=== PATIENT | male | born 1960 | race Caucasian/White ===

== ENCOUNTER 2017-11-05 12:35 | Emergency (ER) | payer MEDICARE, MEDICAID ==
[2017-11-05] MEDS ORDERED: Albuterol 0.083% 2.5 MG/3 ML Neb Soln NEB ONE (12:51)
--- NOTE | 2017-11-05 12:52 | EDM.PDOC ---
ED HPI GENERAL MEDICAL PROBLEM - General Chief Complaint: Respiratory Problem Stated Complaint: ASPIRATING/CHOKING ON SOMETHING Time Seen by Provider: 11/05/17 12:40 Source of Information: Reports: Old Records, Other (housekeeper caregiver) History Limitations: Reports: Other (patient has Down's syndrome and is non- verbal) - History of Present Illness INITIAL COMMENTS - FREE TEXT/NARRATIVE: 57 yo male aspirated after lunch today. Someone in his presence did a Heimich maneuver. Is still having some trouble breathing with a wet cough. No one seems to think he has ever had a swallowing evaluation done. Was taken to the ER at least once in the past for aspiration after eating. Onset: Today Onset Date: 11/05/17 Onset Time: 12:20 Duration: Minutes:, Constant Location: Reports: Chest Severity: Moderate Improves with: Reports: None Worsens with: Reports: None Context: Reports: Other (choking after lunch) Associated Symptoms: Reports: Cough, Shortness of Breath Treatments MORTAR MIXER: Reports: Other (see below) (Serafin zepeda) - Related Data Allergies Allergy/AdvReac Type Severity Reaction Status Date / Time Penicillins Allergy Other Verified 11/05/17 13:15 Home Meds: Home Meds Ascorbate Calcium/Bioflavonoid [Randee-C 500 MG] 1 each PO BID 04/16/17 [History] Garlic Extract [Garlipure] 1,200 mg PO BID 04/16/17 [History] Gluc HCl/Csa/Elliott Hy/Hyalur Ac [Glucosamine Chondroitin] 1 each PO BID 04/16/17 [History] Ibuprofen [Advil] 200 mg PO DAILY 04/16/17 [History] Magnesium 200 mg PO BID 04/16/17 [History] Multivit &Minerals/Ferrous Fum [Multivitamin Liquid] 1 tbsp PO BID 04/16/17 [ History] Triamcinolone Acetonide [Triamcinolone Acetonide Lotion] 1 applic TOP BID [History] Fluocinolone Acetonide Oil [Dermotic] 4 drp EARBOTH .2XWEEK 08/13/17 [History] Polyvinyl Alcohol/Povidone/Pf [Refresh Classic Eye Drops] 1 each EYEBOTH QID 03/22 [History] Tumeric 1 cap PO BID 08/13/17 [History] ED ROS GENERAL - Review of Systems Review Of Systems: See Below Constitutional: Reports: No Symptoms HEENT: Reports: No Symptoms Respiratory: Reports: Shortness of Breath, Cough (wet). Denies: Wheezing, Sputum, Hemoptysis Cardiovascular: Reports: No Symptoms GI/Abdominal: Reports: No Symptoms : Reports: No Symptoms Musculoskeletal: Reports: No Symptoms Skin: Reports: No Symptoms Neurological: Reports: No Symptoms ED EXAM, GENERAL - Physical Exam Exam: See Below Exam Limited By: No Limitations General Appearance: Alert, WD/WN, Mild Distress Eye Exam: Bilateral Eye: Normal Inspection Ears: Normal External Exam, Normal Canal Ear Exam: Bilateral Ear: Auricle Normal, Canal Normal Nose: Normal Inspection, Normal Mucosa, No Blood Throat/Mouth: Normal Inspection, Normal Lips, Normal Oropharynx, No Airway Compromise Head: Atraumatic, Normocephalic Neck: Normal Inspection Respiratory/Chest: No Accessory Muscle Use, Chest Non-Tender, Rhonchi, Other ( wet breath sounds, wet cough) Cardiovascular: Regular Rate, Rhythm, No Edema GI/Abdominal: Normal Bowel Sounds, Soft, Non-Tender, No Distention Extremities: Normal Inspection, Normal Range of Motion, Non-Tender, No Pedal Edema Neurological: Alert, CN II-XII Intact, No Motor/Sensory Deficits Psychiatric: Normal Affect, Normal Mood Skin Exam: Warm, Dry, Intact, Normal Color, No Rash Course - Vital Signs Text/Narrative:: Oxygen per nasal cannula initiated for oximeter of 88%, sats after suction 90-91 %, with ambulation 90% ST suctioned oropharynx Albuterol neb given with slight benefit. Last Recorded V/S: Last Vital Signs Temp 36.2 C 11/05/17 13:14 Pulse 104 H 11/05/17 13:14 Resp 17 11/05/17 13:14 BP 165/84 H 11/05/17 13:14 Pulse Ox 87 L 11/05/17 13:14 - Orders/Labs/Meds Orders: Active Orders 24 hr Category Date Time Status Oxygen Therapy Adult [Oxygen Therapy, ED] [] Care 11/05/17 12:41 Active ASDIRECTED RT Aerosol Therapy [RC] ASDIRECTED Care 11/05/17 12:52 Active RT Suction Oropharyngeal [RESPCARE] Stat Oth 11/05/17 12:42 Ordered Meds: Medications Discontinued Medications Generic Name Dose Route Start Last Admin Trade Name Freq PRN Reason Stop Dose Admin Albuterol 2.5 mg 11/05/17 12:51 11/05/17 13:00 Proventil Neb Soln NEB 11/05/17 12:52 2.5 mg ONETIME ONE Administration Departure - Departure Time of Disposition: 13:49 Disposition: Home, Self-Care 01 Condition: Fair Clinical Impression: Aspiration of food Qualifiers: Encounter type: initial encounter Qualified Code(s): T17.890A - Other foreign object in other parts of respiratory tract causing asphyxiation, initial encounter - Discharge Information Referrals: Kirill Sanford MD [Primary Care Provider] - Forms: ED Department Discharge - My Orders Last 24 Hours: My Active Orders 11/05/17 12:41 Oxygen Therapy Adult [Oxygen Therapy, ED] [RC] ASDIRECTED 11/05/17 12:42 RT Suction Oropharyngeal [RESPCARE] Stat 11/05/17 12:52 RT Aerosol Therapy [RC] ASDIRECTED - Assessment/Plan Last 24 Hours: My Active Orders 11/05/17 12:41 Oxygen Therapy Adult [Oxygen Therapy, ED] [RC] ASDIRECTED 11/05/17 12:42 RT Suction Oropharyngeal [RESPCARE] Stat 11/05/17 12:52 RT Aerosol Therapy [RC] ASDIRECTED
== END 2017-11-05 14:13 | disposition home or self-care (01) ==
LOC: JP.ED 12:35
DX: T17.890A Other foreign object in other parts of respiratory tract causing asphyxiation, initial encounter (principal); Z79.899 Other long term (current) drug therapy; Z88.0 Allergy status to penicillin
CPT/HCPCS: 94640; 99284-25

== ENCOUNTER 2019-05-07 13:18 | Emergency (ER) | payer MEDICARE, MEDICAID ==
--- NOTE | 2019-05-07 14:10 | EDM.PDOC ---
ED HPI GENERAL MEDICAL PROBLEM - General Chief Complaint: Syncope Stated Complaint: WAS SEEN AT CLINIC ON WEDNESDAY FAINTED THIS AM Time Seen by Provider: 05/07/19 14:03 Source of Information: Reports: Family, RN Notes Reviewed History Limitations: Reports: Physical Impairment - History of Present Illness INITIAL COMMENTS - FREE TEXT/NARRATIVE: 59-year-old gentleman presents emergency department today complaint of syncopal event, she is developmentally disabled currently residing in a assisted living home had a syncopal event this morning it was unwitnessed however was found by caregivers easily aroused pulse was 101 heart rate was monitored for the next several hours did return to normal range, no complaints at this time - Related Data Allergies Allergy/AdvReac Type Severity Reaction Status Date / Time Penicillins Allergy Other Verified 05/07/19 13:44 Home Meds: Home Meds Garlic Extract [Garlipure] 600 mg PO BID 04/16/17 [History] Gluc HCl/Csa/Elliott Hy/Hyalur Ac [Glucosamine Chondroitin] 1 each PO BID 04/16/17 [History] Ibuprofen [Advil] 200 mg PO DAILY 04/16/17 [History] Magnesium 2 tab PO DAILY 04/16/17 [History] Multivit &Minerals/Ferrous Fum [Multivitamin Liquid] 1 tab PO BID 04/16/17 [ History] Triamcinolone Acetonide [Triamcinolone Acetonide Lotion] 1 applic TOP BID [History] Polyvinyl Alcohol/Povidone/Pf [Refresh Classic Eye Drops] 1 each EYEBOTH DAILY 08/13/17 [History] Ciclopirox [Loprox 0.77% Crm] 1 dose TOP ASDIRECTED 11/11/17 [History] Nystatin [Nystatin Crm] 1 dose TOP DAILY 11/11/17 [History] Ascorbate Calcium/Bioflavonoid [Randee-C 500 MG] 500 mg PO BID 08/19/18 [History] Mometasone Furoate [Elocon 0.1% Crm] 1 applic TOP WEEKLY 08/19/18 [History] Tumeric 1,500 mg PO DAILY 11/29/18 [History] Fluocinolone Acetonide Oil [Flac Otic Oil] 4 drop EARBOTH .2XWEEK 11/30/18 [ History] Pumpkin Seed Oil/Saw [place] [Saw [place] 160 mg Softgel] 160 mg PO DAILY [History] Azithromycin 1 tab PO DAILY 05/07/19 [History] Past Medical History Psychiatric History: Reports: Developmental Delay - Past Surgical History Head Surgeries/Procedures: Reports: None Social & Family History - Tobacco Use Smoking Status *Q: Never Smoker - Caffeine Use Caffeine Use: Reports: Soda ED ROS GENERAL - Review of Systems Review Of Systems: See Below Constitutional: Reports: No Symptoms HEENT: Reports: No Symptoms Respiratory: Reports: No Symptoms Cardiovascular: Reports: Syncope GI/Abdominal: Reports: No Symptoms - Physical Exam Exam: See Below Exam Limited By: Physical Impairment General Appearance: Alert, WD/WN, No Apparent Distress Respiratory/Chest: No Respiratory Distress, Lungs Clear, Normal Breath Sounds, No Accessory Muscle Use, Chest Non-Tender Cardiovascular: Regular Rate, Rhythm, No Murmur Course - Vital Signs Last Recorded V/S: Last Vital Signs Temp 98.0 F 05/07/19 13:51 Pulse 96 05/07/19 13:51 Resp 14 05/07/19 13:51 BP 122/73 05/07/19 13:51 Pulse Ox 94 L 05/07/19 13:51 - Orders/Labs/Meds Orders: Active Orders 24 hr Category Date Time Status EKG Documentation Completion [RC] ASDIRECTED Care 05/07/19 14:07 Active EKG 12 Lead [EK] Stat Ther 05/07/19 14:07 Ordered Departure - Departure Time of Disposition: 14:41 Disposition: Home, Self-Care 01 Condition: Fair Clinical Impression: Syncope Qualifiers: Syncope type: unspecified Qualified Code(s): R55 - Syncope and collapse - Discharge Information Referrals: Kirill Sanford MD [Primary Care Provider] - Forms: ED Department Discharge Additional Instructions: Please return to the emergency department with continued symptoms of passing out , another option is to consider evaluation long-term either event monitor or Holter monitor follow-up with your primary care in the next 3-5 days with concerns - My Orders Last 24 Hours: My Active Orders 05/07/19 14:07 EKG Documentation Completion [RC] ASDIRECTED EKG 12 Lead [EK] Stat - Assessment/Plan Last 24 Hours: My Active Orders 05/07/19 14:07 EKG Documentation Completion [RC] ASDIRECTED EKG 12 Lead [EK] Stat Plan: Assessment Acuity = acute Site and laterality = syncope unwitnessed Etiology = unknown Manifestations = none Location of injury = Home Lab values = EKG demonstrates a sinus rhythm there is no ST elevations or depressions no signs of ischemia Plan Did review EKG results with caregiver discussed the possibility of event monitor or Holter monitor have him follow-up with primary care in the next 3-5 days for reevaluation or return to the emergency department with continued symptoms This note was dictated using [employer] voice recognition software please call with any questions on syntax or grammar.
== END 2019-05-07 14:56 | disposition home or self-care (01) ==
LOC: JP.ED 13:18
DX: R55 Syncope and collapse (principal); Z88.1 Allergy status to other antibiotic agents
CPT/HCPCS: 93005; 99283-25

== ENCOUNTER 2019-09-05 13:52 | Emergency (ER) | payer MEDICARE, MEDICAID ==
--- NOTE | 2019-09-05 14:26 | EDM.PDOC ---
ED HPI GENERAL MEDICAL PROBLEM - General Chief Complaint: Respiratory Problem Stated Complaint: COUGHING Time Seen by Provider: 09/05/19 14:24 Source of Information: Reports: Patient, Other (hardwood finisher) History Limitations: Reports: Other (down's Syndrome) - History of Present Illness Onset: Gradual Onset Date: 09/03/19 Duration: Getting Worse - Related Data Allergies Allergy/AdvReac Type Severity Reaction Status Date / Time Penicillins Allergy Other Verified 09/05/19 14:34 Home Meds: Home Meds Garlic Extract [Garlipure] 700 mg PO BID 04/16/17 [History] Glucosam/Chond/Collagen/Hyalur [Glucosamine Chondroitin] 1 each PO BID 04/16/17 [History] Ibuprofen [Advil] 200 mg PO DAILY 04/16/17 [History] Multivit-Min/Ferrous Fumarate [Multivitamin Liquid] 1 tab PO BID 04/16/17 [ History] Triamcinolone Acetonide [Triamcinolone Acetonide Lotion] 1 applic TOP BID [History] Polyvinyl Alcohol/Povidone/Pf [Refresh Classic Eye Drops] 1 each EYEBOTH QID 03/22 [History] Ciclopirox [Loprox 0.77% Crm] 1 dose TOP ASDIRECTED 11/11/17 [History] Nystatin [Nystatin Crm] 1 dose TOP DAILY 11/11/17 [History] Ascorbate Calcium/Bioflavonoid [Randee-C 500 MG] 500 mg PO BID 08/19/18 [History] Tumeric 1,500 mg PO DAILY 11/29/18 [History] Pumpkin Seed Oil/Saw [place]rill [Saw [place]rill 160 mg Softgel] 160 mg PO BID [History] Fluorometholone [Fluorometholone 0.1% Ophth Susp] 4 drop EARBOTH ASDIRECTED 09/21 [History] Magnesium Oxide [Uromag] 2 cap PO BID 09/05/19 [History] Triamcinolone Acetonide 1 dose TOP BID 09/05/19 [History] Past Medical History HEENT History: Reports: None Cardiovascular History: Reports: None Respiratory History: Reports: None, Pneumonia, Recurrent Gastrointestinal History: Reports: None Genitourinary History: Reports: None Musculoskeletal History: Reports: None Neurological History: Reports: None Psychiatric History: Reports: Developmental Delay Endocrine/Metabolic History: Reports: None Hematologic History: Reports: None Immunologic History: Reports: None Oncologic (Cancer) History: Reports: None Dermatologic History: Reports: None - Past Surgical History Head Surgeries/Procedures: Reports: None Social & Family History - Caffeine Use Caffeine Use: Reports: Soda ED ROS GENERAL - Review of Systems Review Of Systems: See Below Constitutional: Reports: Weakness, Fatigue HEENT: Denies: Ear Pain, Rhinitis Respiratory: Reports: Shortness of Breath Cardiovascular: Denies: Chest Pain Endocrine: Reports: Fatigue GI/Abdominal: Denies: Abdominal Pain, Vomiting Skin: Reports: Dryness. Denies: Pallor, Rash ED EXAM, GENERAL - Physical Exam Exam: See Below Exam Limited By: Other (Down's Syndrome. Minimal interaction) General Appearance: Alert, Other (Down's Syndrome, Minimal interaction.) Eye Exam: Bilateral Eye: Normal Inspection, PERRL Ears: Normal External Exam Nose: Normal Inspection, Normal Mucosa Throat/Mouth: Other (dried mucous membranes,) Neck: Normal Inspection Respiratory/Chest: Respiratory Distress (Tachypnea. I count resp rate 30.), Decreased Breath Sounds, Crackles (RLL) Cardiovascular: Normal Peripheral Pulses, Regular Rate, Rhythm GI/Abdominal: Soft, Non-Tender Back Exam: Full Range of Motion Extremities: Normal Inspection. No: Pedal Edema Neurological: Alert, Other (non verbal) Psychiatric: Flat Affect Skin Exam: Warm, Dry, Other (Facial flushing) Course - Vital Signs Last Recorded V/S: Last Vital Signs Temp 36.5 C 09/05/19 16:02 Pulse 96 09/05/19 16:02 Resp 16 09/05/19 16:02 BP 127/78 09/05/19 16:02 Pulse Ox 91 L 09/05/19 16:02 - Orders/Labs/Meds Orders: Active Orders 24 hr Category Date Time Status RT Aerosol Therapy [RC] ASDIRECTED Care 09/05/19 15:29 Active UA W/MICROSCOPIC [URIN] Urgent Lab 09/05/19 15:19 Ordered Sodium Chloride 0.9% [Normal Saline] 1,000 ml Med 09/05/19 15:30 Active IV ASDIRECTED Medication Orders Sodium Chloride (Normal Saline) 1,000 mls @ 500 mls/hr IV ASDIRECTED ELHAM Last Admin: 03/03/20 15:58 Dose: 500 mls/hr Labs: Laboratory Tests 09/05/19 09/05/19 09/05/19 Range/Units 15:23 15:23 15:23 WBC 5.6 (4.5-11.0) K/uL RBC 3.44 L (4.30-5.90) M/uL Hgb 11.9 L (12.0-15.0) g/dL Hct 37.3 L (40.0-54.0) % MCV 108 H (80-98) fL MCH 35 H (27-31) pg MCHC 32 (32-36) % Plt Count 231 (150-400) K/uL Sodium 137 L (140-148) mmol/L Potassium 3.8 (3.6-5.2) mmol/L Chloride 98 L (100-108) mmol/L Carbon Dioxide 31 (21-32) mmol/L Anion Gap 11.8 (5.0-14.0) mmol/L BUN 18 (7-18) mg/dL Creatinine 0.7 L (0.8-1.3) mg/dL Est Cr Clr Drug Dosing 79.37 mL/min Estimated GFR (MDRD) > 60 (>60) Glucose 100 (74-106) mg/dL Lactic Acid 1.0 (0.4-2.0) mmol/L Calcium 8.3 L (8.5-10.1) mg/dL Total Bilirubin 0.3 (0.2-1.0) mg/dL AST 37 (15-37) U/L ALT 42 (12-78) U/L Alkaline Phosphatase 80 (46-116) U/L Total Protein 6.5 (6.4-8.2) g/dL Albumin 2.2 L (3.4-5.0) g/dL Globulin 4.3 H (2.3-3.5) g/dL Albumin/Globulin Ratio 0.5 L (1.2-2.2) Meds: Medications Generic Name Dose Route Start Last Admin Trade Name Freq PRN Reason Stop Dose Admin Sodium Chloride 1,000 mls @ 500 mls/hr 09/05/19 15:30 09/05/19 15:58 Normal Saline IV 500 mls/hr ASDIRECTED ELHAM Administration Discontinued Medications Generic Name Dose Route Start Last Admin Trade Name Freq PRN Reason Stop Dose Admin Albuterol/Ipratropium 3 ml 09/05/19 15:29 09/05/19 15:53 Duoneb 3.0-0.5 Mg/3 Ml NEB 09/05/19 15:30 3 ml ONETIME ONE Administration Departure - Departure Time of Disposition: 16:45 Disposition: Home, W Home Health Agency 06 Condition: Good Clinical Impression: Upper respiratory infection - Discharge Information Instructions: Viral Respiratory Infection Referrals: Kirill Sanford MD [Primary Care Provider] - Forms: ED Department Discharge Sepsis Event Note - Focused Exam Vital Signs: Vital Signs Temp Pulse Resp BP Pulse Ox 09/05/19 16:02 36.5 C 96 16 127/78 91 L 09/05/19 14:32 102 H 17 133/71 90 L 09/05/19 14:08 102 H 17 133/71 90 L Date Exam was Performed: 09/05/19 Time Exam was Performed: 16:46 - My Orders Last 24 Hours: My Active Orders 09/05/19 15:19 UA W/MICROSCOPIC [URIN] Urgent 09/05/19 15:29 RT Aerosol Therapy [RC] ASDIRECTED 09/05/19 15:30 Sodium Chloride 0.9% [Normal Saline] 1,000 ml IV ASDIRECTED - Assessment/Plan Last 24 Hours: My Active Orders 09/05/19 15:19 UA W/MICROSCOPIC [URIN] Urgent 09/05/19 15:29 RT Aerosol Therapy [RC] ASDIRECTED 09/05/19 15:30 Sodium Chloride 0.9% [Normal Saline] 1,000 ml IV ASDIRECTED
[2019-09-05] MEDS: Albuterol/Ipratropium 3.0-0.5 MG/3 ML Neb Soln NEB ONE (15:53)
[2019-09-05] MEDS: Sodium Chloride 0.9% 1,000 ML IV SCH (15:58)
--- NOTE | 2019-09-05 16:06 | CRLCR ---
INDICATION: COUGH, TACHYPNEA TECHNIQUE: Chest 2 views. COMPARISON: None. FINDINGS: Cardiovascular and mediastinum: Heart size and vasculature are normal in caliber and appearance. Mediastinum is within normal limits. Lungs and pleural spaces: Lungs are clear. No sign of infiltrate or mass. No sign of pleural effusion. No pneumothorax. Bones and soft tissues: No significant findings. IMPRESSION: Unremarkable chest. Dictated by: Kirill Hitchcock MD @ 09/05/2019 16:04:24 (Electronically Signed)
== END 2019-09-05 18:38 | disposition home health service (06) ==
LOC: JP.ED 13:52
DX: J06.9 Acute upper respiratory infection, unspecified (principal); Z88.0 Allergy status to penicillin; Z79.899 Other long term (current) drug therapy
CPT/HCPCS: 36415; 71046; 80053; 83605; 85027; 94640; 96360; 96361; 99284; 99285; J7030; J7620-GY

== ENCOUNTER 2019-09-07 19:56 | Inpatient (IN) | payer MEDICARE, MEDICAID ==
[2019-09-07] MEDS ORDERED: Sodium Chloride 0.9% 1,000 ML IV SCH ×2 (21:00→21:30)
[2019-09-07] MEDS ORDERED: Albuterol 0.083% 2.5 MG/3 ML Neb Soln NEB ONE (21:14)
--- NOTE | 2019-09-07 21:14 | CRLCR ---
INDICATION: Shortness of breath and low O2 saturations Technique: Portable upright chest. COMPARISON: 09/05/2019. FINDINGS: Developing bilateral bibasilar pulmonary infiltrates suggesting pneumonia. Normal heart size and pulmonary vascular pattern. Possible small left pleural effusion. IMPRESSION: 1. Developing bibasilar pulmonary opacities with pneumonia the primary consideration. 2. Possible small left pleural effusion. Dictated by Khalif Ellis MD @ Sep 07 2019 9:12PM Signed by Dr. Khalif Ellis @ Sep 07 2019 9:13PM
--- NOTE | 2019-09-07 21:17 | EDM.PDOC ---
ED HPI GENERAL MEDICAL PROBLEM - General Chief Complaint: General Stated Complaint: WEAKNESS,NOT EATING Time Seen by Provider: 09/07/19 21:13 Source of Information: Reports: Patient History Limitations: Reports: No Limitations - History of Present Illness INITIAL COMMENTS - FREE TEXT/NARRATIVE: pt arrived being much weaker and more congested in his chest. He is not drinking or eating well at the care home. He has had low grade temps. His o2 sats are at 90. . Onset: Other (pt has been sick for about 2 weeks. ) Duration: Day(s): Location: Reports: Chest, Other (pt is not eating or drinking well. ) Associated Symptoms: Reports: Cough, Loss of Appetite, Shortness of Breath, Weakness - Related Data Allergies Allergy/AdvReac Type Severity Reaction Status Date / Time cephalexin [From Keflex] Allergy Other Verified 09/07/19 21:08 Penicillins Allergy Other Verified 09/07/19 20:43 Home Meds: Home Meds Garlic Extract [Garlipure] 700 mg PO BID 04/16/17 [History] Glucosam/Chond/Collagen/Hyalur [Glucosamine Chondroitin] 1 each PO BID 04/16/17 [History] Ibuprofen [Advil] 200 mg PO DAILY 04/16/17 [History] Multivit-Min/Ferrous Fumarate [Multivitamin Liquid] 1 tab PO BID 04/16/17 [ History] Triamcinolone Acetonide [Triamcinolone Acetonide Lotion] 1 applic TOP BID [History] Polyvinyl Alcohol/Povidone/Pf [Refresh Classic Eye Drops] 1 each EYEBOTH QID 03/22 [History] Ciclopirox [Loprox 0.77% Crm] 1 dose TOP ASDIRECTED 11/11/17 [History] Nystatin [Nystatin Crm] 1 dose TOP DAILY 11/11/17 [History] Ascorbate Calcium/Bioflavonoid [Randee-C 500 MG] 500 mg PO BID 08/19/18 [History] Tumeric 1,500 mg PO DAILY 11/29/18 [History] Pumpkin Seed Oil/Saw [place] [Saw [place] 160 mg Softgel] 160 mg PO BID [History] Fluorometholone [Fluorometholone 0.1% Ophth Susp] 4 drop EARBOTH ASDIRECTED 09/21 [History] Magnesium Oxide [Uromag] 2 cap PO BID 09/05/19 [History] Triamcinolone Acetonide 1 dose TOP BID 09/05/19 [History] Past Medical History HEENT History: Reports: None Cardiovascular History: Reports: None Respiratory History: Reports: None, Pneumonia, Recurrent Gastrointestinal History: Reports: None Genitourinary History: Reports: None Musculoskeletal History: Reports: None Other Musculoskeletal History: perthes hip defect. possible torn muscle in thigh. Neurological History: Reports: None Psychiatric History: Reports: Developmental Delay Other Psychiatric History: down syndrome Endocrine/Metabolic History: Reports: None Hematologic History: Reports: None Immunologic History: Reports: None Oncologic (Cancer) History: Reports: None Dermatologic History: Reports: None - Past Surgical History Head Surgeries/Procedures: Reports: None Social & Family History - Family History Family Medical History: Noncontributory - Tobacco Use Smoking Status *Q: Never Smoker - Caffeine Use Caffeine Use: Reports: None - Recreational Drug Use Recreational Drug Use: No ED ROS GENERAL - Review of Systems Review Of Systems: See Below Constitutional: Reports: Chills, Malaise, Weakness, Decreased Appetite HEENT: Reports: Other (mouth is very dry. ) Respiratory: Reports: Shortness of Breath, Wheezing, Cough Cardiovascular: Reports: No Symptoms Endocrine: Reports: No Symptoms GI/Abdominal: Reports: Other (poor appetite. ) : Reports: No Symptoms Musculoskeletal: Reports: No Symptoms Skin: Reports: No Symptoms Neurological: Reports: No Symptoms ED EXAM, GENERAL - Physical Exam Exam: See Below Free Text/Narrative:: pt arrived ed with increased weakness marked chest congestion . pt has had a very poor intake for the past 2 days. Exam Limited By: Other (pt does not answer or is not able to communicate.) General Appearance: Alert, Moderate Distress Ears: Normal TMs Nose: Normal Inspection Throat/Mouth: Other (mucous membranes are very dry. ) Head: Atraumatic Neck: Normal Inspection Respiratory/Chest: Decreased Breath Sounds, Rales, Wheezing Cardiovascular: Regular Rate, Rhythm GI/Abdominal: Soft, Non-Tender (Male) Exam: Deferred Rectal (Males) Exam: Deferred Back Exam: Normal Inspection Extremities: Normal Inspection, Other ( slight edema both ankles) Neurological: Alert, Other (pt is not normally verbal. ) Psychiatric: Other (pt is a nonverbal [place] syndrome. ) Course - Vital Signs Last Recorded V/S: Last Vital Signs Temp 36.8 C 09/07/19 20:42 Pulse 87 09/07/19 20:42 Resp 24 H 09/07/19 20:42 BP 136/71 09/07/19 20:42 Pulse Ox 90 L 09/07/19 20:42 - Orders/Labs/Meds Orders: Active Orders 24 hr Category Date Time Status Chest 1V Frontal [CR] Stat Exams 09/07/19 20:40 Taken COMPREHENSIVE METABOLIC PN,CMP [CHEM] Urgent Lab 09/07/19 20:41 Received CULTURE BLOOD [BC] Urgent Lab 09/07/19 21:01 Ordered CULTURE BLOOD [BC] Urgent Lab 09/07/19 21:01 Ordered LACTIC ACID [CHEM] Stat Lab 09/07/19 20:40 Received UA W/MICROSCOPIC [URIN] Urgent Lab 09/07/19 20:25 Ordered Sodium Chloride 0.9% [Normal Saline] 1,000 ml Med 09/07/19 21:00 Active IV ASDIRECTED Blood Culture x2 Reflex Set [OM.PC] Urgent Oth 09/07/19 21:01 Ordered Medication Orders Sodium Chloride (Normal Saline) 1,000 mls @ 999 mls/hr IV ASDIRECTED [facility] Labs: Laboratory Tests 09/07/19 Range/Units 20:41 WBC 10.6 (4.5-11.0) K/uL RBC 3.28 L (4.30-5.90) M/uL Hgb 11.6 L (12.0-15.0) g/dL Hct 35.5 L (40.0-54.0) % MCV 108 H (80-98) fL MCH 35 H (27-31) pg MCHC 33 (32-36) % Plt Count 220 (150-400) K/uL Neut % (Auto) 89 H (36-66) % Lymph % (Auto) 4 L (24-44) % [place] % (Auto) 7 H (2-6) % Eos % (Auto) 0 L (2-4) % Baso % (Auto) 0 (0-1) % Meds: Medications Generic Name Dose Route Start Last Admin Trade Name Freq PRN Reason Stop Dose Admin Sodium Chloride 1,000 mls @ 999 mls/hr 09/07/19 21:00 Normal Saline IV ASDIRECTED [facility] - Re-Assessments/Exams Free Text/Narrative Re-Assessment/Exam: 09/07/19 21:23influ a positive, chest xray show infiltrates present. Pt appears dehydrated. Departure - Departure Time of Disposition: 21:24 Disposition: Admitted As Inpatient 65 Condition: Fair Clinical Impression: Influenza A, Bilateral pneumonia, Dehydration - Discharge Information Referrals: Kirill Sanford MD [Primary Care Provider] - Care Plan Goals: admit to [facility] Sepsis Event Note - Evaluation Sepsis Screening Result: No Definite Risk - Focused Exam Vital Signs: Vital Signs Temp Pulse Resp BP Pulse Ox 09/07/19 20:42 36.8 C 87 24 H 136/71 90 L 09/07/19 20:30 88 134/67 96 09/07/19 20:23 36.8 C 87 24 H 136/71 90 L Date Exam was Performed: 09/07/19 Time Exam was Performed: 21:12 - My Orders Last 24 Hours: My Active Orders 09/07/19 20:25 UA W/MICROSCOPIC [URIN] Urgent 09/07/19 20:40 Chest 1V Frontal [CR] Stat LACTIC ACID [CHEM] Stat 09/07/19 20:41 COMPREHENSIVE METABOLIC PN,CMP [CHEM] Urgent 09/07/19 21:00 Sodium Chloride 0.9% [Normal Saline] 1,000 ml IV ASDIRECTED 09/07/19 21:01 CULTURE BLOOD [BC] Urgent CULTURE BLOOD [BC] Urgent Blood Culture x2 Reflex Set [OM.PC] Urgent - Assessment/Plan Last 24 Hours: My Active Orders 09/07/19 20:25 UA W/MICROSCOPIC [URIN] Urgent 09/07/19 20:40 Chest 1V Frontal [CR] Stat LACTIC ACID [CHEM] Stat 09/07/19 20:41 COMPREHENSIVE METABOLIC PN,CMP [CHEM] Urgent 09/07/19 21:00 Sodium Chloride 0.9% [Normal Saline] 1,000 ml IV ASDIRECTED 09/07/19 21:01 CULTURE BLOOD [BC] Urgent CULTURE BLOOD [BC] Urgent Blood Culture x2 Reflex Set [OM.PC] Urgent
[2019-09-07] MEDS ORDERED: Levofloxacin/Dextrose 5%-Water 750 MG in Premix Bag 1 BAG IV SCH (21:30)
[2019-09-07] MEDS ORDERED: Vancomycin 1 GM SDV IV SCH (23:00)
[2019-09-07] MEDS: Meropenem 1 GM in Sodium Chloride 0.9% 100 ML IV SCH (23:30)
--- NOTE | 2019-09-07 23:42 | PCM.HP.2 ---
H&P History of Present Illness - General Date of Service: 09/07/19 Admit Problem/Dx: Admission Diagnosis/Problem Admission Diagnosis/Problem Pneumonia Source of Information: Family, Provider, RN Notes Reviewed. No: Patient History Limitations: Reports: Altered Mental Status (Congenital cognitive impairment) - History of Present Illness Initial Comments - Free Text/Narative: Mr. Marie is a 59-year-old gentleman who was admitted through the emergency department with dehydration and hypoxia secondary to influenza and bilateral pneumonia. He has a known history of congenital cognitive impairment as well as other physical disabilities secondary to Down syndrome. He has very minimal verbal skills, inability to ambulate, and is incontinent of bowel and bladder. He is unable to provide a meaningful history concerning recent symptoms or review of systems. History was obtained from his personal care provider as well as emergency department provider. He has been sick for 6 to 7 days with cough and shortness of breath. Over the last 2 days he has become progressively more weak and lethargic. On evaluation in the emergency department he was found to be hypoxic, but has not had significant fever. Influenza a antigen is found to be positive and chest x-ray shows evidence of bilateral pulmonary infiltrates. - Related Data Allergies/Adverse Reactions: Allergies Allergy/AdvReac Type Severity Reaction Status Date / Time cephalexin [From Keflex] Allergy Other Verified 09/07/19 21:08 Penicillins Allergy Other Verified 09/07/19 20:43 Home Medications: Home Meds Garlic Extract [Garlipure] 700 mg PO BID 04/16/17 [History] Glucosam/Chond/Collagen/Hyalur [Glucosamine Chondroitin] 1 each PO BID 04/16/17 [History] Ibuprofen [Advil] 200 mg PO DAILY 04/16/17 [History] Multivit-Min/Ferrous Fumarate [Multivitamin Liquid] 1 tab PO BID 04/16/17 [ History] Triamcinolone Acetonide [Triamcinolone Acetonide Lotion] 1 applic TOP BID [History] Polyvinyl Alcohol/Povidone/Pf [Refresh Classic Eye Drops] 1 each EYEBOTH QID 03/22 [History] Ciclopirox [Loprox 0.77% Crm] 1 dose TOP ASDIRECTED 11/11/17 [History] Nystatin [Nystatin Crm] 1 dose TOP DAILY 11/11/17 [History] Ascorbate Calcium/Bioflavonoid [Randee-C 500 MG] 500 mg PO BID 08/19/18 [History] Tumeric 1,500 mg PO DAILY 11/29/18 [History] Pumpkin Seed Oil/Saw [place] [Saw [place] 160 mg Softgel] 160 mg PO BID [History] Fluorometholone [Fluorometholone 0.1% Ophth Susp] 4 drop EARBOTH ASDIRECTED 09/21 [History] Magnesium Oxide [Uromag] 2 cap PO BID 09/05/19 [History] Triamcinolone Acetonide 1 dose TOP BID 09/05/19 [History] Past Medical History HEENT History: Reports: None Cardiovascular History: Reports: None Respiratory History: Reports: None, Pneumonia, Recurrent Gastrointestinal History: Reports: None Genitourinary History: Reports: None Musculoskeletal History: Reports: None Other Musculoskeletal History: perthes hip defect. possible torn muscle in thigh. Neurological History: Reports: None Psychiatric History: Reports: Developmental Delay Other Psychiatric History: down syndrome Endocrine/Metabolic History: Reports: None Hematologic History: Reports: None Immunologic History: Reports: None Oncologic (Cancer) History: Reports: None Dermatologic History: Reports: None - Past Surgical History Head Surgeries/Procedures: Reports: None Social & Family History - Family History Family Medical History: Noncontributory - Tobacco Use Smoking Status *Q: Never Smoker - Caffeine Use Caffeine Use: Reports: None - Recreational Drug Use Recreational Drug Use: No H&P Review of Systems - Review of Systems: Review Of Systems: See Below General: Reports: ROS unobtainable (Congenital cognitive impairment secondary to Down syndrome) Exam - Exam Exam: See Below - Vital Signs Vital Signs: Last Vital Signs Temp 98.2 F 09/07/19 20:42 Pulse 102 H 09/07/19 21:31 Resp 24 H 09/07/19 20:42 BP 158/86 H 09/07/19 21:31 Pulse Ox 97 09/07/19 21:31 Weight: 141 lb 15.643 oz - Exam Quality Assessment: Supplemental Oxygen, DVT Prophylaxis General: Alert, Cooperative, Moderate Distress. No: Oriented HEENT: Conjunctiva Clear, Normal Nasal Septum, Posterior Pharynx Clear, Pupils Equal. No: Mucosa Moist & [place] Neck: Supple, Trachea Midline, +2 Carotid Pulse wo Bruit Lungs: Rhonchi, Wheezing. No: Normal Respiratory Effort, Crackles, Rales Cardiovascular: Regular Rhythm, Normal S1, Normal S2, Tachycardia. No: Systolic Murmur, Diastolic Murmur GI/Abdominal Exam: Soft, Non-Tender, No Organomegaly, No Distention Extremities: Non-Tender, No Pedal Edema Skin: Warm, Dry, Intact - Patient Data Lab Results Last 24 hrs: Laboratory Results - last 24 hr 09/07/19 09/07/19 09/07/19 Range/Units 20:40 20:40 20:41 WBC 10.6 (4.5-11.0) K/uL RBC 3.28 L (4.30-5.90) M/uL Hgb 11.6 L (12.0-15.0) g/dL Hct 35.5 L (40.0-54.0) % MCV 108 H (80-98) fL MCH 35 H (27-31) pg MCHC 33 (32-36) % Plt Count 220 (150-400) K/uL Neut % (Auto) 89 H (36-66) % Lymph % (Auto) 4 L (24-44) % [place] % (Auto) 7 H (2-6) % Eos % (Auto) 0 L (2-4) % Baso % (Auto) 0 (0-1) % Puncture Site ABG pH (7.350-7.450) ABG pCO2 (35.0-42.0) mmHg ABG pO2 (75.0-100.0) mmHg ABG HCO3 (22.0-26.0) mmol/L ABG Total CO2 (23.0-27.0) mmol/L ABG O2 Saturation (95.0-98.0) % ABG O2 Content (15.0-23.0) %vol ABG Base Excess mm/L ABG Hemoglobin (13.5-18.0) g/dL ABG Oxyhemoglobin % ABG Carboxyhemoglobin (0.0-1.6) % ABG Methemoglobin % [place] Test O2 Delivery Device Oxygen Flow Rate L Sodium (140-148) mmol/L Potassium (3.6-5.2) mmol/L Chloride (100-108) mmol/L Carbon Dioxide (21-32) mmol/L Anion Gap (5.0-14.0) mmol/L BUN (7-18) mg/dL Creatinine (0.8-1.3) mg/dL Est Cr Clr Drug Dosing mL/min Estimated GFR (MDRD) (>60) Glucose (74-106) mg/dL Lactic Acid 1.5 (0.4-2.0) mmol/L Calcium (8.5-10.1) mg/dL Total Bilirubin (0.2-1.0) mg/dL AST (15-37) U/L ALT (12-78) U/L Alkaline Phosphatase (46-116) U/L NT-Pro-B Natriuret Pep 956 H (5-125) pg/mL Total Protein (6.4-8.2) g/dL Albumin (3.4-5.0) g/dL Globulin (2.3-3.5) g/dL Albumin/Globulin Ratio (1.2-2.2) Procalcitonin ng/mL Urine Color (YELLOW) Urine Appearance (CLEAR) Urine pH (5.0-8.0) Ur Specific [place] (1.008-1.030) Urine Protein (NEGATIVE) mg/dL Urine Glucose (UA) (NEGATIVE) mg/dL Urine Ketones (NEGATIVE) mg/dL Urine Occult Blood (NEGATIVE) Urine Nitrite (NEGATIVE) Urine Bilirubin (NEGATIVE) Urine Urobilinogen (0.2-1.0) EU/dL Ur Leukocyte Esterase (NEGATIVE) Urine RBC (0-5) Urine WBC (0-5) Ur Epithelial Cells Amorphous Sediment Urine Bacteria Urine Mucus 09/07/19 09/07/19 09/07/19 Range/Units 20:41 21:56 22:17 WBC (4.5-11.0) K/uL RBC (4.30-5.90) M/uL Hgb (12.0-15.0) g/dL Hct (40.0-54.0) % MCV (80-98) fL MCH (27-31) pg MCHC (32-36) % Plt Count (150-400) K/uL Neut % (Auto) (36-66) % Lymph % (Auto) (24-44) % [place] % (Auto) (2-6) % Eos % (Auto) (2-4) % Baso % (Auto) (0-1) % Puncture Site ABG pH (7.350-7.450) ABG pCO2 (35.0-42.0) mmHg ABG pO2 (75.0-100.0) mmHg ABG HCO3 (22.0-26.0) mmol/L ABG Total CO2 (23.0-27.0) mmol/L ABG O2 Saturation (95.0-98.0) % ABG O2 Content (15.0-23.0) %vol ABG Base Excess mm/L ABG Hemoglobin (13.5-18.0) g/dL ABG Oxyhemoglobin % ABG Carboxyhemoglobin (0.0-1.6) % ABG Methemoglobin % [place] Test O2 Delivery Device Oxygen Flow Rate L Sodium 135 L (140-148) mmol/L Potassium 3.6 (3.6-5.2) mmol/L Chloride 98 L (100-108) mmol/L Carbon Dioxide 32 (21-32) mmol/L Anion Gap 8.6 (5.0-14.0) mmol/L BUN 10 (7-18) mg/dL Creatinine 0.8 (0.8-1.3) mg/dL Est Cr Clr Drug Dosing 69.44 mL/min Estimated GFR (MDRD) > 60 (>60) Glucose 109 H (74-106) mg/dL Lactic Acid (0.4-2.0) mmol/L Calcium 8.6 (8.5-10.1) mg/dL Total Bilirubin 0.3 (0.2-1.0) mg/dL AST 28 (15-37) U/L ALT 35 (12-78) U/L Alkaline Phosphatase 82 (46-116) U/L NT-Pro-B Natriuret Pep (5-125) pg/mL Total Protein 6.3 L (6.4-8.2) g/dL Albumin 2.0 L (3.4-5.0) g/dL Globulin 4.3 H (2.3-3.5) g/dL Albumin/Globulin Ratio 0.5 L (1.2-2.2) Procalcitonin 0.11 ng/mL Urine Color Yellow (YELLOW) Urine Appearance Clear (CLEAR) Urine pH 6.0 (5.0-8.0) Ur Specific [place] >= 1.030 (1.008-1.030) Urine Protein Trace H (NEGATIVE) mg/dL Urine Glucose (UA) Negative (NEGATIVE) mg/dL Urine Ketones Negative (NEGATIVE) mg/dL Urine Occult Blood Negative (NEGATIVE) Urine Nitrite Negative (NEGATIVE) Urine Bilirubin Negative (NEGATIVE) Urine Urobilinogen 0.2 (0.2-1.0) EU/dL Ur Leukocyte Esterase Negative (NEGATIVE) Urine RBC 0-5 (0-5) Urine WBC 0-5 (0-5) Ur Epithelial Cells Rare Amorphous Sediment Not seen Urine Bacteria Rare Urine Mucus Moderate 09/07/19 Range/Units 22:25 WBC (4.5-11.0) K/uL RBC (4.30-5.90) M/uL Hgb (12.0-15.0) g/dL Hct (40.0-54.0) % MCV (80-98) fL MCH (27-31) pg MCHC (32-36) % Plt Count (150-400) K/uL Neut % (Auto) (36-66) % Lymph % (Auto) (24-44) % [place] % (Auto) (2-6) % Eos % (Auto) (2-4) % Baso % (Auto) (0-1) % Puncture Site Lt radial ABG pH 7.454 H (7.350-7.450) ABG pCO2 38.6 (35.0-42.0) mmHg ABG pO2 60.6 L (75.0-100.0) mmHg ABG HCO3 26.7 H (22.0-26.0) mmol/L ABG Total CO2 24.1 (23.0-27.0) mmol/L ABG O2 Saturation 90.9 L (95.0-98.0) % ABG O2 Content 14.3 L (15.0-23.0) %vol ABG Base Excess 3.1 mm/L ABG Hemoglobin 11.4 L (13.5-18.0) g/dL ABG Oxyhemoglobin 88.9 % ABG Carboxyhemoglobin 1.6 (0.0-1.6) % ABG Methemoglobin 0.6 % [place] Test Pass O2 Delivery Device Nasal cannula Oxygen Flow Rate L Sodium (140-148) mmol/L Potassium (3.6-5.2) mmol/L Chloride (100-108) mmol/L Carbon Dioxide (21-32) mmol/L Anion Gap (5.0-14.0) mmol/L BUN (7-18) mg/dL Creatinine (0.8-1.3) mg/dL Est Cr Clr Drug Dosing mL/min Estimated GFR (MDRD) (>60) Glucose (74-106) mg/dL Lactic Acid (0.4-2.0) mmol/L Calcium (8.5-10.1) mg/dL Total Bilirubin (0.2-1.0) mg/dL AST (15-37) U/L ALT (12-78) U/L Alkaline Phosphatase (46-116) U/L NT-Pro-B Natriuret Pep (5-125) pg/mL Total Protein (6.4-8.2) g/dL Albumin (3.4-5.0) g/dL Globulin (2.3-3.5) g/dL Albumin/Globulin Ratio (1.2-2.2) Procalcitonin ng/mL Urine Color (YELLOW) Urine Appearance (CLEAR) Urine pH (5.0-8.0) Ur Specific [place] (1.008-1.030) Urine Protein (NEGATIVE) mg/dL Urine Glucose (UA) (NEGATIVE) mg/dL Urine Ketones (NEGATIVE) mg/dL Urine Occult Blood (NEGATIVE) Urine Nitrite (NEGATIVE) Urine Bilirubin (NEGATIVE) Urine Urobilinogen (0.2-1.0) EU/dL Ur Leukocyte Esterase (NEGATIVE) Urine RBC (0-5) Urine WBC (0-5) Ur Epithelial Cells Amorphous Sediment Urine Bacteria Urine Mucus Result Diagrams: 09/07/19 20:41 09/07/19 20:41 Dino Results Last 24 hrs: Microbiology 09/07/19 20:38 Influenza Type A Antigen Screen - Final Nasal Aspirate, Left Positive Influenza A Ag Influenza Type B Antigen Screen - Final NEGATIVE INFLUENZA B VIRUS AG REFERENCE RANGE: NEGATIVE Sepsis Event Note - Evaluation Sepsis Screening Result: No Definite Risk - Focused Exam Vital Signs: Vital Signs Temp Pulse Resp BP Pulse Ox 09/07/19 21:31 102 H 158/86 H 97 09/07/19 21:00 88 138/92 H 96 09/07/19 20:42 98.2 F 87 24 H 136/71 90 L 09/07/19 20:30 88 134/67 96 09/07/19 20:23 98.2 F 87 24 H 136/71 90 L Date Exam was Performed: 09/07/19 Time Exam was Performed: 23:31 *Q Meaningful Use (ADM) - VTE Risk Assess *Q Each Risk Factor Represents 1 Point: Obesity ( BMI > 25 kg/m2), Serious lung disease including pneumonia Total Score 1 Point Risk Factors: 2 Each Risk Factor Represents 2 Points: Age 60 - 74 Years Total Score 2 Point Risk Factors: 2 Each Risk Factor Represents 3 Points: None Total Score 3 Point Risk Factors: 0 Each Risk Factor Represents 5 Points: None Total Score 5 Point Risk Factors: 0 Venous Thromboembolism Risk Factor Score *Q: 4 Problem List Initiated/Reviewed/Updated: Yes Orders Last 24hrs: Active Orders 24 hr Category Date Time Status Patient Status Manage Transfer [TRANSFER] Routine ADT 09/07/19 23:24 Ordered RT Aerosol Therapy [RC] ASDIRECTED Care 09/07/19 21:14 Active C-REACTIVE PROTEIN [CHEM] AM Lab 09/08/19 05:11 Ordered CBC WITH AUTO DIFF [HEME] AM Lab 09/08/19 05:11 Ordered COMPREHENSIVE METABOLIC PN,CMP [CHEM] AM Lab 09/08/19 05:11 Ordered CULTURE BLOOD [BC] Urgent Lab 09/07/19 21:05 Received CULTURE BLOOD [BC] Urgent Lab 09/07/19 21:15 Received LACTIC ACID [CHEM] Timed Lab 09/08/19 03:10 Ordered Meropenem [Merrem] 1 gm Med 09/07/19 22:15 Active Sodium Chloride 0.9% [Normal Saline] 100 ml IV Q8H Sodium Chloride 0.9% [Normal Saline] 1,000 ml Med 09/07/19 21:00 Active IV ASDIRECTED Sodium Chloride 0.9% [Normal Saline] 1,000 ml Med 09/07/19 21:30 Active IV ASDIRECTED Vancomycin Med 09/07/19 23:00 Active 1 gm IV .PHARMACY TO DOSE Blood Culture x2 Reflex Set [OM.PC] Urgent Oth 09/07/19 21:01 Ordered Resuscitation Status Routine Resus Stat 09/07/19 23:28 Ordered Medication Orders Sodium Chloride (Normal Saline) 1,000 mls @ 999 mls/hr IV ASDIRECTED [facility] Last Admin: 09/07/19 21:26 Dose: 999 mls/hr Sodium Chloride (Normal Saline) 1,000 mls @ 125 mls/hr IV ASDIRECTED [facility] Last Admin: 09/07/19 22:32 Dose: 125 mls/hr Meropenem 1 gm/ Sodium (Chloride) 100 mls @ 200 mls/hr IV Q8H [facility] Last Admin: 09/07/19 23:30 Dose: 200 mls/hr Vancomycin HCl (Vancomycin) 1 gm IV .PHARMACY TO DOSE [facility] Assessment/Plan Comment:: ASSESSMENT AND PLAN BILATERAL PNEUMONIA-likely secondary to influenza A. Symptoms have been present for 6 to 7 days, he is not currently a candidate for Tamiflu. No significant temperature elevation in the emergency department and staff from the [facility] denies recent fevers. He has no history of aspiration or difficulty with eating. He has developed significant respiratory compromise and for this reason we will plan to proceed with antibiotic therapy for at least the first few days of hospitalization. -Blood cultures pending -IV vancomycin and meropenem pending culture results INFLUENZA A-not a candidate for Tamiflu because of prolonged duration of symptoms -Supportive care DEHYDRATION -IV fluids for hydration HYPOXIC RESPIRATORY FAILURE-despite supplemental oxygen, has borderline oxygenation. Respiratory rate remains elevated and I am concerned that he is developing progressive respiratory failure. -Supplemental oxygen as needed -Initiate noninvasive positive pressure ventilation -Continuous pulse oximetry -End-tidal CO2 MAINTENANCE ISSUES -DVT prophylaxis; Lovenox 40 mg subcu daily -GI prophylaxis; not indicated -[place] catheter; not indicated -Nutrition; regular diet -Nicotine dependence; not required CODE STATUS-FULL CODE ADMISSION STATUS-patient will be admitted to inpatient status, expect at least a 2 night hospital stay for evaluation and management of problems as outlined above. At the time of this admission I do not reasonably expected evaluation and management of this problem will require more than a 96 hour hospital stay. DISPOSITION-anticipate discharge to home after the hospital stay. PRIMARY CARE PROVIDER-Dr. Sanford - Mortality Measure Prognosis:: Good
[2019-09-08] MEDS ORDERED: Ondansetron 4 MG/2 ML SDV IV PRN (00:31)
[2019-09-08] MEDS ORDERED: Polyethylene Glycol 3350 Powder 17 GM Packet PO PRN (00:31)
[2019-09-08] MEDS ORDERED: Enoxaparin 40 MG/0.4 ML Syringe SUBCUT SCH (00:31)
[2019-09-08] MEDS ORDERED: Sodium Chloride 0.9% 10 ML Syringe FLUSH PRN (00:31)
[2019-09-08] MEDS ORDERED: Sodium Chloride 0.9% 1,000 ML IV SCH (00:31)
[2019-09-08] MEDS ORDERED: Enoxaparin 40 MG/0.4 ML Syringe ONE (00:48)
[2019-09-08] MEDS ORDERED: [UNRECOGNIZED DRUG - REMARK] SCH (01:45)
[2019-09-08] MEDS: Acetaminophen 325 MG Tab PO PRN (03:41)
[2019-09-08] MEDS: Ibuprofen 400 MG Tab PO PRN (05:17)
[2019-09-08] MEDS: Meropenem 1 GM in Sodium Chloride 0.9% 100 ML IV SCH (06:00)
[2019-09-08] MEDS ORDERED: Non-Formulary Medication 1 Each (Polyvinyl Alcohol/Povidone/Pf [Refresh Classic Eye Drops] EYEBOTH SCH (06:00)
[2019-09-08] MEDS: Hypromellose 0.3% Ophth Soln 15 ML Bottle EYEBOTH SCH ×4 (08:27→21:01)
[2019-09-08] MEDS: Magnesium Oxide 400 MG Tab PO SCH ×2 (08:38→21:00)
[2019-09-08] MEDS: Potassium Chloride 20 MEQ, Lidocaine 1% 2 ML in Sodium Chloride 0.9% 100 ML IV SCH ×2 (09:13→13:34)
--- NOTE | 2019-09-08 10:17 | PCM.PN ---
- General Info Date of Service: 09/08/19 Subjective Update: Mr. Marie he is to experience respiratory compromise, oxygen saturations have been adequate but respiratory rate remains elevated. He has been hemodynamically stable but did have significant temperature elevation after admission. He is unable to provide meaningful history concerning recent symptoms or review of systems because of his congenital cognitive impairment. - Patient Data Vitals - Most Recent: Last Vital Signs Temp 98 F 09/08/19 08:00 Pulse 102 H 09/08/19 08:00 Resp 29 H 09/08/19 08:00 BP 121/63 09/08/19 08:00 Pulse Ox 96 09/08/19 08:00 Weight - Most Recent: 141 lb 15.643 oz I&O - Last 24 Hours: Intake & Output 09/07/19 09/08/19 09/08/19 22:59 06:59 14:59 Intake Total 193 Balance 1934 Lab Results Last 24 Hours: Laboratory Results - last 24 hr 09/07/19 09/07/19 09/07/19 Range/Units 20:40 20:40 20:41 WBC 10.6 (4.5-11.0) K/uL RBC 3.28 L (4.30-5.90) M/uL Hgb 11.6 L (12.0-15.0) g/dL Hct 35.5 L (40.0-54.0) % MCV 108 H (80-98) fL MCH 35 H (27-31) pg MCHC 33 (32-36) % Plt Count 220 (150-400) K/uL Neut % (Auto) 89 H (36-66) % Lymph % (Auto) 4 L (24-44) % Heard % (Auto) 7 H (2-6) % Eos % (Auto) 0 L (2-4) % Baso % (Auto) 0 (0-1) % Puncture Site ABG pH (7.350-7.450) ABG pCO2 (35.0-42.0) mmHg ABG pO2 (75.0-100.0) mmHg ABG HCO3 (22.0-26.0) mmol/L ABG Total CO2 (23.0-27.0) mmol/L ABG O2 Saturation (95.0-98.0) % ABG O2 Content (15.0-23.0) %vol ABG Base Excess mm/L ABG Hemoglobin (13.5-18.0) g/dL ABG Oxyhemoglobin % ABG Carboxyhemoglobin (0.0-1.6) % ABG Methemoglobin % Figueroa Test O2 Delivery Device Oxygen Flow Rate L Sodium (140-148) mmol/L Potassium (3.6-5.2) mmol/L Chloride (100-108) mmol/L Carbon Dioxide (21-32) mmol/L Anion Gap (5.0-14.0) mmol/L BUN (7-18) mg/dL Creatinine (0.8-1.3) mg/dL Est Cr Clr Drug Dosing mL/min Estimated GFR (MDRD) (>60) Glucose (74-106) mg/dL Lactic Acid 1.5 (0.4-2.0) mmol/L Calcium (8.5-10.1) mg/dL Magnesium (1.8-2.4) mg/dL Total Bilirubin (0.2-1.0) mg/dL AST (15-37) U/L ALT (12-78) U/L Alkaline Phosphatase (46-116) U/L C-Reactive Protein (0.0-0.3) mg/dL NT-Pro-B Natriuret Pep 956 H (5-125) pg/mL Total Protein (6.4-8.2) g/dL Albumin (3.4-5.0) g/dL Globulin (2.3-3.5) g/dL Albumin/Globulin Ratio (1.2-2.2) Procalcitonin ng/mL Urine Color (YELLOW) Urine Appearance (CLEAR) Urine pH (5.0-8.0) Ur Specific [place] (1.008-1.030) Urine Protein (NEGATIVE) mg/dL Urine Glucose (UA) (NEGATIVE) mg/dL Urine Ketones (NEGATIVE) mg/dL Urine Occult Blood (NEGATIVE) Urine Nitrite (NEGATIVE) Urine Bilirubin (NEGATIVE) Urine Urobilinogen (0.2-1.0) EU/dL Ur Leukocyte Esterase (NEGATIVE) Urine RBC (0-5) Urine WBC (0-5) Ur Epithelial Cells Amorphous Sediment Urine Bacteria Urine Mucus 09/07/19 09/07/19 09/07/19 Range/Units 20:41 21:56 22:17 WBC (4.5-11.0) K/uL RBC (4.30-5.90) M/uL Hgb (12.0-15.0) g/dL Hct (40.0-54.0) % MCV (80-98) fL MCH (27-31) pg MCHC (32-36) % Plt Count (150-400) K/uL Neut % (Auto) (36-66) % Lymph % (Auto) (24-44) % Heard % (Auto) (2-6) % Eos % (Auto) (2-4) % Baso % (Auto) (0-1) % Puncture Site ABG pH (7.350-7.450) ABG pCO2 (35.0-42.0) mmHg ABG pO2 (75.0-100.0) mmHg ABG HCO3 (22.0-26.0) mmol/L ABG Total CO2 (23.0-27.0) mmol/L ABG O2 Saturation (95.0-98.0) % ABG O2 Content (15.0-23.0) %vol ABG Base Excess mm/L ABG Hemoglobin (13.5-18.0) g/dL ABG Oxyhemoglobin % ABG Carboxyhemoglobin (0.0-1.6) % ABG Methemoglobin % Figueroa Test O2 Delivery Device Oxygen Flow Rate L Sodium 135 L (140-148) mmol/L Potassium 3.6 (3.6-5.2) mmol/L Chloride 98 L (100-108) mmol/L Carbon Dioxide 32 (21-32) mmol/L Anion Gap 8.6 (5.0-14.0) mmol/L BUN 10 (7-18) mg/dL Creatinine 0.8 (0.8-1.3) mg/dL Est Cr Clr Drug Dosing 69.44 mL/min Estimated GFR (MDRD) > 60 (>60) Glucose 109 H (74-106) mg/dL Lactic Acid (0.4-2.0) mmol/L Calcium 8.6 (8.5-10.1) mg/dL Magnesium (1.8-2.4) mg/dL Total Bilirubin 0.3 (0.2-1.0) mg/dL AST 28 (15-37) U/L ALT 35 (12-78) U/L Alkaline Phosphatase 82 (46-116) U/L C-Reactive Protein (0.0-0.3) mg/dL NT-Pro-B Natriuret Pep (5-125) pg/mL Total Protein 6.3 L (6.4-8.2) g/dL Albumin 2.0 L (3.4-5.0) g/dL Globulin 4.3 H (2.3-3.5) g/dL Albumin/Globulin Ratio 0.5 L (1.2-2.2) Procalcitonin 0.11 ng/mL Urine Color Yellow (YELLOW) Urine Appearance Clear (CLEAR) Urine pH 6.0 (5.0-8.0) Ur Specific [place] >= 1.030 (1.008-1.030) Urine Protein Trace H (NEGATIVE) mg/dL Urine Glucose (UA) Negative (NEGATIVE) mg/dL Urine Ketones Negative (NEGATIVE) mg/dL Urine Occult Blood Negative (NEGATIVE) Urine Nitrite Negative (NEGATIVE) Urine Bilirubin Negative (NEGATIVE) Urine Urobilinogen 0.2 (0.2-1.0) EU/dL Ur Leukocyte Esterase Negative (NEGATIVE) Urine RBC 0-5 (0-5) Urine WBC 0-5 (0-5) Ur Epithelial Cells Rare Amorphous Sediment Not seen Urine Bacteria Rare Urine Mucus Moderate 09/07/19 09/08/19 09/08/19 Range/Units 22:25 05:50 05:50 WBC 9.6 (4.5-11.0) K/uL RBC 3.03 L (4.30-5.90) M/uL Hgb 10.5 L (12.0-15.0) g/dL Hct 32.3 L (40.0-54.0) % MCV 107 H (80-98) fL MCH 35 H (27-31) pg MCHC 33 (32-36) % Plt Count 208 (150-400) K/uL Neut % (Auto) 91 H (36-66) % Lymph % (Auto) 5 L (24-44) % Heard % (Auto) 5 (2-6) % Eos % (Auto) 0 L (2-4) % Baso % (Auto) 0 (0-1) % Puncture Site Lt radial ABG pH 7.454 H (7.350-7.450) ABG pCO2 38.6 (35.0-42.0) mmHg ABG pO2 60.6 L (75.0-100.0) mmHg ABG HCO3 26.7 H (22.0-26.0) mmol/L ABG Total CO2 24.1 (23.0-27.0) mmol/L ABG O2 Saturation 90.9 L (95.0-98.0) % ABG O2 Content 14.3 L (15.0-23.0) %vol ABG Base Excess 3.1 mm/L ABG Hemoglobin 11.4 L (13.5-18.0) g/dL ABG Oxyhemoglobin 88.9 % ABG Carboxyhemoglobin 1.6 (0.0-1.6) % ABG Methemoglobin 0.6 % Figueroa Test Pass O2 Delivery Device Nasal cannula Oxygen Flow Rate L Sodium 135 L (140-148) mmol/L Potassium 3.3 L (3.6-5.2) mmol/L Chloride 101 (100-108) mmol/L Carbon Dioxide 27 (21-32) mmol/L Anion Gap 10.3 (5.0-14.0) mmol/L BUN 8 (7-18) mg/dL Creatinine 0.6 L (0.8-1.3) mg/dL Est Cr Clr Drug Dosing 92.59 mL/min Estimated GFR (MDRD) > 60 (>60) Glucose 104 (74-106) mg/dL Lactic Acid (0.4-2.0) mmol/L Calcium 8.1 L (8.5-10.1) mg/dL Magnesium 1.8 (1.8-2.4) mg/dL Total Bilirubin 0.4 (0.2-1.0) mg/dL AST 22 (15-37) U/L ALT 29 (12-78) U/L Alkaline Phosphatase 73 (46-116) U/L C-Reactive Protein 22.08 H (0.0-0.3) mg/dL NT-Pro-B Natriuret Pep (5-125) pg/mL Total Protein 5.5 L (6.4-8.2) g/dL Albumin 1.7 L (3.4-5.0) g/dL Globulin 3.8 H (2.3-3.5) g/dL Albumin/Globulin Ratio 0.5 L (1.2-2.2) Procalcitonin ng/mL Urine Color (YELLOW) Urine Appearance (CLEAR) Urine pH (5.0-8.0) Ur Specific [place] (1.008-1.030) Urine Protein (NEGATIVE) mg/dL Urine Glucose (UA) (NEGATIVE) mg/dL Urine Ketones (NEGATIVE) mg/dL Urine Occult Blood (NEGATIVE) Urine Nitrite (NEGATIVE) Urine Bilirubin (NEGATIVE) Urine Urobilinogen (0.2-1.0) EU/dL Ur Leukocyte Esterase (NEGATIVE) Urine RBC (0-5) Urine WBC (0-5) Ur Epithelial Cells Amorphous Sediment Urine Bacteria Urine Mucus Dino Results Last 24 Hours: Microbiology 09/08/19 00:45 Gram Stain - Final Endotrachael Aspirate 09/07/19 20:38 Influenza Type A Antigen Screen - Final Nasal Aspirate, Left Positive Influenza A Ag Influenza Type B Antigen Screen - Final NEGATIVE INFLUENZA B VIRUS AG REFERENCE RANGE: NEGATIVE Med Orders - Current: Current Medications Acetaminophen (Tylenol) 650 mg PO Q4H PRN PRN Reason: Pain (Mild 1-3)/fever Last Admin: 09/08/19 03:41 Dose: 650 mg Albuterol (Proventil Neb Soln) 2.5 mg NEB Q4H PRN PRN Reason: Shortness Of Breath/wheezing Artificial Tears (Genteal Mild To Moderate Ophth Soln) 0 ml EYEBOTH QID [facility] Last Admin: 09/08/19 09:23 Dose: 1 drop Enoxaparin Sodium (Lovenox) 40 mg SUBCUT BEDTIME [facility] Meropenem 1 gm/ Sodium (Chloride) 50 mls @ 100 mls/hr IV Q8H [facility] Vancomycin HCl 1 gm/ Sodium (Chloride) 250 mls @ 166.667 mls/hr IV Q12H [facility] Potassium Chloride 20 meq/Lidocaine HCl 2 ml/ Sodium Chloride 112 mls @ 56 mls/ hr IV Q2H [facility] Stop: 09/08/19 12:59 Last Admin: 09/08/19 09:13 Dose: 56 mls/hr Sodium Chloride (Normal Saline) 1,000 mls @ 75 mls/hr IV ASDIRECTED [facility] Ibuprofen (Motrin) 400 mg PO Q6H PRN PRN Reason: Fever Last Admin: 09/08/19 05:17 Dose: 400 mg Magnesium Oxide (Magnesium Oxide) 200 mg PO BID [facility] Last Admin: 09/08/19 08:38 Dose: 200 mg Ondansetron HCl (Zofran) 4 mg IV Q4H PRN PRN Reason: Nausea/Vomiting Polyethylene Glycol (Miralax) 17 gm PO DAILY PRN PRN Reason: Constipation Sodium Chloride (Saline Flush) 10 ml FLUSH ASDIRECTED PRN PRN Reason: Keep Vein Open Discontinued Medications Albuterol (Proventil Neb Soln) 2.5 mg NEB ONETIME ONE Stop: 09/07/19 21:15 Last Admin: 09/07/19 21:41 Dose: 2.5 mg Enoxaparin Sodium (Lovenox) 40 mg SUBCUT DAILY [facility] Last Admin: 09/08/19 01:24 Dose: 40 mg Enoxaparin Sodium (Lovenox) Confirm Administered Dose 40 mg .ROUTE .STK-MED ONE Stop: 09/08/19 00:49 Last Admin: 09/08/19 01:24 Dose: Not Given Sodium Chloride (Normal Saline) 1,000 mls @ 999 mls/hr IV ASDIRECTED [facility] Last Admin: 09/07/19 21:26 Dose: 999 mls/hr Levofloxacin/Dextrose 750 mg/ (Premix) 150 mls @ 100 mls/hr IV Q24H [facility] Last Admin: 09/07/19 22:24 Dose: Not Given Sodium Chloride (Normal Saline) 1,000 mls @ 125 mls/hr IV ASDIRECTED [facility] Last Admin: 09/07/19 22:32 Dose: 125 mls/hr Meropenem 1 gm/ Sodium (Chloride) 100 mls @ 200 mls/hr IV Q8H [facility] Last Admin: 09/08/19 06:00 Dose: 200 mls/hr Sodium Chloride (Normal Saline) 1,000 mls @ 125 mls/hr IV ASDIRECTED [facility] Vancomycin HCl 1 gm/ Sodium (Chloride) 250 mls @ 166.667 mls/hr IV ONETIME ONE Stop: 09/08/19 03:29 Last Admin: 09/08/19 02:31 Dose: 166.667 mls/hr Pharmacy Consult (Consult To Pharmacy) 0 each .XX ASDIRECTED [facility] Stop: 09/08/19 01:46 - Exam General: Lethargic Lungs: Rhonchi, Wheezing. No: Normal Respiratory Effort, Crackles, Rales, Rub Cardiovascular: Regular Rate, Regular Rhythm, No Murmurs GI/Abdominal Exam: Soft, Non-Tender, No Organomegaly, No Distention Extremities: Non-Tender, No Pedal Edema Sepsis Event Note - Evaluation Sepsis Screening Result: Severe Sepsis Risk - Focused Exam Vital Signs: Vital Signs Temp Temp Pulse Resp BP Pulse Ox 09/08/19 08:00 98 F 102 H 29 H 121/63 96 09/08/19 06:00 98.8 F 19 113/56 L 93 L 09/08/19 05:17 101.2 F H 09/08/19 05:00 101.5 F H 24 H 137/72 90 L 09/08/19 04:11 101.2 F H 09/08/19 04:00 101.2 F H 30 H 122/70 92 L 09/08/19 03:41 100.7 F H 09/08/19 03:00 100.7 F H 24 H 139/77 97 09/08/19 02:00 16 132/68 98 09/08/19 01:00 24 H 143/74 H 97 09/08/19 00:31 99.2 F 21 H 145/81 H 94 L 09/07/19 23:34 94 L Date Exam was Performed: 09/08/19 Time Exam was Performed: 10:15 - Problem List Review Problem List Initiated/Reviewed/Updated: Yes - My Orders Last 24 Hours: My Active Orders 09/07/19 23:28 Resuscitation Status Routine 09/07/19 23:43 RT End Tidal CO2 Monitoring [RC] ASDIRECTED 09/08/19 00:31 Patient Status [ADT] Routine BIPAP Adult [RT BiPAP/CPAP] [RC] ASDIRECTED Cardiac Monitoring [RC] Q6H Height and Weight [RC] DAILY Intake and Output [RC] QSHIFT Notify Provider Vital Signs [RC] ASDIRECTED Oxygen Therapy [RC] PRN Peripheral IV Care [RC] Q12H Pulse Oximetry [RC] CONTINUOUS RT Aerosol Therapy [RC] ASDIRECTED Up With Assistance [RC] ASDIRECTED Up to Chair [RC] QID VTE/DVT Education [RC] Per Unit Routine Vital Signs [RC] Q2H Acetaminophen [Tylenol] 650 mg PO Q4H PRN Albuterol [Proventil Neb Soln] 2.5 mg NEB Q4H PRN Ondansetron [Zofran] 4 mg IV Q4H PRN Sodium Chloride 0.9% [Saline Flush] 10 ml FLUSH ASDIRECTED PRN polyethylene glycoL 3350 [MiraLAX] 17 gm PO DAILY PRN Peripheral IV Insertion Adult [OM.PC] Routine 09/08/19 00:45 CULTURE RESPIRATORY + SMEAR [RM] Routine 09/08/19 05:01 Ibuprofen [Motrin] 400 mg PO Q6H PRN 09/08/19 08:00 Hypromellose [GenTeal Mild to Moderate Ophth Soln] 0 ml EYEBOTH QID 09/08/19 09:00 Magnesium Oxide 200 mg PO BID Potassium Chloride 20 meq Lidocaine 1% [Xylocaine 1%] 2 ml Sodium Chloride 0.9 % [Normal Saline] 100 ml IV Q2H 09/08/19 10:13 BLOOD GAS ARTERIAL [BG] Stat 09/08/19 10:15 Sodium Chloride 0.9% @ 75 MLS/HR(1000ml) Sodium Chloride 0.9% [Normal Saline] 1 ,000 ml IV ASDIRECTED 09/08/19 14:00 Vancomycin 1 gm Sodium Chloride 0.9% [Normal Saline] 250 ml IV Q12H 09/08/19 21:00 Enoxaparin [Lovenox] 40 mg SUBCUT BEDTIME 09/08/19 Breakfast Regular Diet [DIET] 09/09/19 05:00 BASIC METABOLIC PANEL,BMP [CHEM] Timed CBC WITH AUTO DIFF [HEME] Timed MAGNESIUM [CHEM] Timed 09/09/19 13:30 VANCOMYCIN TROUGH [CHEM] Routine - Plan Plan:: ASSESSMENT AND PLAN BILATERAL PNEUMONIA-likely secondary to influenza A. He has no history of aspiration or difficulty with eating. He has developed significant respiratory compromise and for this reason we will plan to proceed with antibiotic therapy for at least the first few days of hospitalization. Continues to experience respiratory compromise, no evidence of significant worsening since admission. -Blood cultures pending -IV vancomycin and meropenem pending culture results INFLUENZA A-not a candidate for Tamiflu because of prolonged duration of symptoms -Supportive care DEHYDRATION -IV fluids for hydration HYPOXIC RESPIRATORY FAILURE-despite supplemental oxygen, has borderline oxygenation. Respiratory rate remains elevated and I am concerned that he is developing progressive respiratory failure. -Supplemental oxygen as needed -Initiate noninvasive positive pressure ventilation -Continuous pulse oximetry -End-tidal CO2 MAINTENANCE ISSUES -DVT prophylaxis; Lovenox 40 mg subcu daily -GI prophylaxis; not indicated -Dudley catheter; not indicated -Nutrition; regular diet -Nicotine dependence; not required CODE STATUS-FULL CODE ADMISSION STATUS-patient will be admitted to inpatient status, expect at least a 2 night hospital stay for evaluation and management of problems as outlined above. At the time of this admission I do not reasonably expected evaluation and management of this problem will require more than a 96 hour hospital stay. DISPOSITION-anticipate discharge to home after the hospital stay. PRIMARY CARE PROVIDER-Dr. Sanford
[2019-09-08] MEDS: Sodium Chloride 0.9% 1,000 ML IV SCH (10:24)
[2019-09-08] MEDS: Albuterol 0.083% 2.5 MG/3 ML Neb Soln NEB PRN ×2 (11:05→21:20)
[2019-09-08] MEDS: Enoxaparin 40 MG/0.4 ML Syringe SUBCUT SCH (21:01)
[2019-09-09] MEDS: Sodium Chloride 0.9% 1,000 ML IV SCH (01:31)
[2019-09-09] MEDS: Hypromellose 0.3% Ophth Soln 15 ML Bottle EYEBOTH SCH ×4 (06:00→21:32)
[2019-09-09] MEDS: Magnesium Oxide 400 MG Tab PO SCH ×2 (09:06→21:13)
--- NOTE | 2019-09-09 09:14 | PCM.PN ---
- General Info Date of Service: 09/09/19 Subjective Update: Mr. Marie is improved over the last 24 hours. No significant temperature elevations and overall has been hemodynamically stable. Respiratory status appears to be improved and he has been tolerating use of noninvasive positive pressure ventilation while resting. He is unable to provide a meaningful history concerning symptoms or review of systems because of his underlying congenital cognitive impairment. - Patient Data Vitals - Most Recent: Last Vital Signs Temp 97.8 F 09/09/19 07:45 Pulse 101 H 09/09/19 07:45 Resp 27 H 09/09/19 07:45 BP 150/66 H 09/09/19 07:45 Pulse Ox 93 L 09/09/19 07:45 Weight - Most Recent: 141 lb 15.643 oz I&O - Last 24 Hours: Intake & Output 09/08/19 09/09/19 09/09/19 22:59 06:59 14:59 Intake Total 643 1191 Balance 643 1191 Lab Results Last 24 Hours: Laboratory Results - last 24 hr 09/08/19 09/09/19 09/09/19 Range/Units 10:40 05:40 05:40 WBC 11.2 H (4.5-11.0) K/uL RBC 3.28 L (4.30-5.90) M/uL Hgb 11.3 L (12.0-15.0) g/dL Hct 35.7 L (40.0-54.0) % MCV 109 H (80-98) fL MCH 35 H (27-31) pg MCHC 32 (32-36) % Plt Count 210 (150-400) K/uL Add Manual Diff Yes Neutrophils % (Manual) 87 H (36-66) % Lymphocytes % (Manual) 5 L (24-44) % Monocytes % (Manual) 7 H (2-6) % Puncture Site Lt radial ABG pH 7.430 (7.350-7.450) ABG pCO2 41.8 (35.0-42.0) mmHg ABG pO2 77.0 (75.0-100.0) mmHg ABG HCO3 27.2 H (22.0-26.0) mmol/L ABG Total CO2 24.9 (23.0-27.0) mmol/L ABG O2 Saturation 95.3 (95.0-98.0) % ABG O2 Content 14.2 L (15.0-23.0) %vol ABG Base Excess 3.1 mm/L ABG Hemoglobin 10.8 L (13.5-18.0) g/dL ABG Oxyhemoglobin 92.7 % ABG Carboxyhemoglobin 1.9 H (0.0-1.6) % ABG Methemoglobin 0.8 % Figueroa Test Passed O2 Delivery Device Nasal cannula Oxygen Flow Rate L Sodium 139 L (140-148) mmol/L Potassium 3.8 (3.6-5.2) mmol/L Chloride 103 (100-108) mmol/L Carbon Dioxide 26 (21-32) mmol/L Anion Gap 13.8 (5.0-14.0) mmol/L BUN 7 (7-18) mg/dL Creatinine 0.7 L (0.8-1.3) mg/dL Est Cr Clr Drug Dosing 79.37 mL/min Estimated GFR (MDRD) > 60 (>60) Glucose 76 (74-106) mg/dL Calcium 8.4 L (8.5-10.1) mg/dL Magnesium 2.0 (1.8-2.4) mg/dL Dino Results Last 24 Hours: Microbiology 09/08/19 00:45 Gram Stain - Final Endotrachael Aspirate Respiratory Culture - Preliminary 09/07/19 21:05 Aerobic Blood Culture - Preliminary Blood - Arm, Left NO GROWTH AFTER 1 DAY Anaerobic Blood Culture - Preliminary NO GROWTH AFTER 1 DAY 09/07/19 21:15 Aerobic Blood Culture - Preliminary Blood - Arm, Left NO GROWTH AFTER 1 DAY Anaerobic Blood Culture - Preliminary NO GROWTH AFTER 1 DAY Med Orders - Current: Current Medications Acetaminophen (Tylenol) 650 mg PO Q4H PRN PRN Reason: Pain (Mild 1-3)/fever Last Admin: 09/08/19 03:41 Dose: 650 mg Albuterol (Proventil Neb Soln) 2.5 mg NEB Q4H PRN PRN Reason: Shortness Of Breath/wheezing Last Admin: 09/08/19 21:20 Dose: 2.5 mg Artificial Tears (Genteal Mild To Moderate Ophth Soln) 0 ml EYEBOTH QID [facility] Last Admin: 09/09/19 09:06 Dose: 1 drop Enoxaparin Sodium (Lovenox) 40 mg SUBCUT BEDTIME [facility] Last Admin: 09/08/19 21:01 Dose: 40 mg Meropenem 1 gm/ Sodium (Chloride) 50 mls @ 100 mls/hr IV Q8H [facility] Last Admin: 09/09/19 05:24 Dose: 100 mls/hr Vancomycin HCl 1 gm/ Sodium (Chloride) 250 mls @ 166.667 mls/hr IV Q12H [facility] Last Admin: 09/09/19 03:27 Dose: 166.667 mls/hr Sodium Chloride (Normal Saline) 1,000 mls @ 50 mls/hr IV ASDIRECTED [facility] Ibuprofen (Motrin) 400 mg PO Q6H PRN PRN Reason: Fever Last Admin: 09/08/19 05:17 Dose: 400 mg Magnesium Oxide (Magnesium Oxide) 200 mg PO BID [facility] Last Admin: 09/09/19 09:06 Dose: 200 mg Ondansetron HCl (Zofran) 4 mg IV Q4H PRN PRN Reason: Nausea/Vomiting Polyethylene Glycol (Miralax) 17 gm PO DAILY PRN PRN Reason: Constipation Sodium Chloride (Saline Flush) 10 ml FLUSH ASDIRECTED PRN PRN Reason: Keep Vein Open Discontinued Medications Albuterol (Proventil Neb Soln) 2.5 mg NEB ONETIME ONE Stop: 09/07/19 21:15 Last Admin: 09/07/19 21:41 Dose: 2.5 mg Enoxaparin Sodium (Lovenox) 40 mg SUBCUT DAILY [facility] Last Admin: 09/08/19 01:24 Dose: 40 mg Enoxaparin Sodium (Lovenox) Confirm Administered Dose 40 mg .ROUTE .STK-MED ONE Stop: 09/08/19 00:49 Last Admin: 09/08/19 01:24 Dose: Not Given Sodium Chloride (Normal Saline) 1,000 mls @ 999 mls/hr IV ASDIRECTED [facility] Last Admin: 09/07/19 21:26 Dose: 999 mls/hr Levofloxacin/Dextrose 750 mg/ (Premix) 150 mls @ 100 mls/hr IV Q24H [facility] Last Admin: 09/07/19 22:24 Dose: Not Given Sodium Chloride (Normal Saline) 1,000 mls @ 125 mls/hr IV ASDIRECTED [facility] Last Admin: 09/07/19 22:32 Dose: 125 mls/hr Meropenem 1 gm/ Sodium (Chloride) 100 mls @ 200 mls/hr IV Q8H [facility] Last Admin: 09/08/19 06:00 Dose: 200 mls/hr Sodium Chloride (Normal Saline) 1,000 mls @ 125 mls/hr IV ASDIRECTED [facility] Vancomycin HCl 1 gm/ Sodium (Chloride) 250 mls @ 166.667 mls/hr IV ONETIME ONE Stop: 09/08/19 03:29 Last Admin: 09/08/19 02:31 Dose: 166.667 mls/hr Potassium Chloride 20 meq/Lidocaine HCl 2 ml/ Sodium Chloride 112 mls @ 56 mls/ hr IV Q2H [facility] Stop: 09/08/19 12:59 Last Admin: 09/08/19 13:34 Dose: 56 mls/hr Sodium Chloride (Normal Saline) 1,000 mls @ 75 mls/hr IV ASDIRECTED [facility] Last Admin: 09/09/19 01:31 Dose: 75 mls/hr Pharmacy Consult (Consult To Pharmacy) 0 each .XX ASDIRECTED [facility] Stop: 09/08/19 01:46 - Exam Quality Assessment: Supplemental Oxygen, DVT Prophylaxis General: Alert, Cooperative, Mild Distress. No: Oriented Lungs: Clear to Auscultation, Decreased Breath Sounds. No: Normal Respiratory Effort, Rhonchi, Wheezing Cardiovascular: Regular Rate, Regular Rhythm, No Murmurs GI/Abdominal Exam: Soft, Non-Tender, No Organomegaly, No Distention Extremities: Non-Tender, No Pedal Edema Sepsis Event Note - Evaluation Sepsis Screening Result: Sepsis Risk - Focused Exam Vital Signs: Vital Signs Temp Pulse Resp BP Pulse Ox 09/09/19 07:45 97.8 F 101 H 27 H 150/66 H 93 L 09/09/19 06:00 20 153/71 H 94 L 09/09/19 04:00 97.5 F 16 130/77 98 09/09/19 02:00 16 136/83 98 09/09/19 00:31 98 09/09/19 00:00 96.7 F L 17 102/58 L 98 09/08/19 22:00 27 H 128/75 98 Date Exam was Performed: 09/09/19 Time Exam was Performed: 09:10 - Problem List Review Problem List Initiated/Reviewed/Updated: Yes - My Orders Last 24 Hours: My Active Orders 09/08/19 09:00 Magnesium Oxide 200 mg PO BID 09/08/19 14:00 Vancomycin 1 gm Sodium Chloride 0.9% [Normal Saline] 250 ml IV Q12H 09/08/19 21:00 Enoxaparin [Lovenox] 40 mg SUBCUT BEDTIME 09/09/19 09:15 Sodium Chloride 0.9% @ 50 MLS/HR(1000ml) Sodium Chloride 0.9% [Normal Saline] 1 ,000 ml IV ASDIRECTED 09/09/19 13:30 VANCOMYCIN TROUGH [CHEM] Routine 09/10/19 05:00 BASIC METABOLIC PANEL,BMP [CHEM] Timed CBC WITH AUTO DIFF [HEME] Timed - Plan Plan:: ASSESSMENT AND PLAN BILATERAL PNEUMONIA-likely secondary to influenza A. He has no history of aspiration or difficulty with eating. Respiratory status has improved over the last 24 hours and he has been afebrile. -Blood cultures pending -IV vancomycin and meropenem pending culture results INFLUENZA A-not a candidate for Tamiflu because of prolonged duration of symptoms -Supportive care DEHYDRATION -IV fluids for hydration HYPOXIC RESPIRATORY FAILURE-despite supplemental oxygen, has borderline oxygenation. Respiratory rate remains elevated and I am concerned that he is developing progressive respiratory failure. -Supplemental oxygen as needed -Initiate noninvasive positive pressure ventilation -Continuous pulse oximetry MAINTENANCE ISSUES -DVT prophylaxis; Lovenox 40 mg subcu daily -GI prophylaxis; not indicated -Dudley catheter; not indicated -Nutrition; regular diet -Nicotine dependence; not required CODE STATUS-FULL CODE ADMISSION STATUS-patient will be admitted to inpatient status, expect at least a 2 night hospital stay for evaluation and management of problems as outlined above. At the time of this admission I do not reasonably expected evaluation and management of this problem will require more than a 96 hour hospital stay. DISPOSITION-anticipate discharge to home after the hospital stay. PRIMARY CARE PROVIDER-Dr. Sanford
[2019-09-09] MEDS ORDERED: Sodium Chloride 0.9% 1,000 ML IV SCH (09:15)
[2019-09-09] MEDS: Ibuprofen 400 MG Tab PO PRN ×2 (15:09→21:12)
[2019-09-09] MEDS: Acetaminophen 325 MG Tab PO PRN (15:10)
[2019-09-09] MEDS: Vancomycin 1.2 GM in Sodium Chloride 0.9% 250 ML IV SCH (15:11)
[2019-09-09] MEDS: Albuterol 0.083% 2.5 MG/3 ML Neb Soln NEB PRN (18:04)
[2019-09-09] MEDS: Enoxaparin 40 MG/0.4 ML Syringe SUBCUT SCH (21:13)
[2019-09-10] MEDS: Vancomycin 1.2 GM in Sodium Chloride 0.9% 250 ML IV SCH ×2 (03:10→14:59)
[2019-09-10] MEDS: Hypromellose 0.3% Ophth Soln 15 ML Bottle EYEBOTH SCH ×4 (05:45→21:07)
[2019-09-10] MEDS: Magnesium Oxide 400 MG Tab PO SCH ×2 (08:23→20:53)
[2019-09-10] MEDS ORDERED: Potassium Chloride 20 MEQ Tab.ER PO ONE ×2 (08:45→17:00)
--- NOTE | 2019-09-10 09:33 | PCM.PN ---
- General Info Date of Service: 09/10/19 Subjective Update: Mr. Marie has been stable since yesterday. Endotracheal suction culture has grown out MRSA. He is doing better with cough and oxygen saturations have been within desired range. White blood cell count remains normal and he has been afebrile. Continues to use noninvasive positive pressure ventilation while resting and sleeping. He is unable to provide meaningful information concerning symptoms or review of systems because of underlying congenital cognitive impairment. - Patient Data Vitals - Most Recent: Last Vital Signs Temp 98.5 F 09/10/19 07:25 Pulse 94 09/10/19 07:25 Resp 21 H 09/10/19 07:25 BP 134/81 09/10/19 07:25 Pulse Ox 94 L 09/10/19 07:25 Weight - Most Recent: 141 lb 15.643 oz I&O - Last 24 Hours: Intake & Output 09/09/19 09/10/19 09/10/19 21:59 06:59 14:59 Intake Total 420 Balance 420 Lab Results Last 24 Hours: Laboratory Results - last 24 hr 09/09/19 09/10/19 09/10/19 Range/Units 13:30 05:45 05:45 WBC 8.7 (4.5-11.0) K/uL RBC 3.01 L (4.30-5.90) M/uL Hgb 10.2 L (12.0-15.0) g/dL Hct 32.6 L (40.0-54.0) % MCV 108 H (80-98) fL MCH 34 H (27-31) pg MCHC 31 L (32-36) % Plt Count 212 (150-400) K/uL Add Manual Diff Yes Neutrophils % (Manual) 89 H (36-66) % Band Neutrophils % 3 L (5-11) % Lymphocytes % (Manual) 2 L (24-44) % Monocytes % (Manual) 5 (2-6) % Sodium 143 (140-148) mmol/L Potassium 3.5 L (3.6-5.2) mmol/L Chloride 105 (100-108) mmol/L Carbon Dioxide 30 (21-32) mmol/L Anion Gap 11.5 (5.0-14.0) mmol/L BUN 11 D (7-18) mg/dL Creatinine 0.6 L (0.8-1.3) mg/dL Est Cr Clr Drug Dosing 92.59 mL/min Estimated GFR (MDRD) > 60 (>60) Glucose 116 H (74-106) mg/dL Calcium 8.1 L (8.5-10.1) mg/dL Vancomycin Trough 9.2 L (10.0-20.0) ug/mL Dino Results Last 24 Hours: Microbiology 09/08/19 00:45 Gram Stain - Final Endotrachael Aspirate Respiratory Culture - Final (Mrsa) Staphylococcus Aureus 09/07/19 21:15 Aerobic Blood Culture - Preliminary Blood - Arm, Left NO GROWTH AFTER 2 DAYS Anaerobic Blood Culture - Preliminary NO GROWTH AFTER 2 DAYS 09/07/19 21:05 Aerobic Blood Culture - Preliminary Blood - Arm, Left NO GROWTH AFTER 2 DAYS Anaerobic Blood Culture - Preliminary NO GROWTH AFTER 2 DAYS Med Orders - Current: Current Medications Acetaminophen (Tylenol) 650 mg PO Q4H PRN PRN Reason: Pain (Mild 1-3)/fever Last Admin: 09/09/19 15:10 Dose: 650 mg Albuterol (Proventil Neb Soln) 2.5 mg NEB Q4H PRN PRN Reason: Shortness Of Breath/wheezing Last Admin: 09/09/19 18:04 Dose: 2.5 mg Artificial Tears (Genteal Mild To Moderate Ophth Soln) 0 ml EYEBOTH QID [facility] Last Admin: 09/10/19 05:45 Dose: 1 drop Enoxaparin Sodium (Lovenox) 40 mg SUBCUT BEDTIME [facility] Last Admin: 09/09/19 21:13 Dose: 40 mg Vancomycin HCl 1.2 gm/ Sodium (Chloride) 250 mls @ 167 mls/hr IV Q12H [facility] Last Admin: 09/10/19 03:10 Dose: 167 mls/hr Ibuprofen (Motrin) 400 mg PO Q6H PRN PRN Reason: Fever Last Admin: 09/09/19 21:12 Dose: 400 mg Magnesium Oxide (Magnesium Oxide) 200 mg PO BID [facility] Last Admin: 09/10/19 08:23 Dose: 200 mg Ondansetron HCl (Zofran) 4 mg IV Q4H PRN PRN Reason: Nausea/Vomiting Polyethylene Glycol (Miralax) 17 gm PO DAILY PRN PRN Reason: Constipation Potassium Chloride (Klor-Con M20) 40 meq PO ONETIME ONE Stop: 09/10/19 17:01 Sodium Chloride (Saline Flush) 10 ml FLUSH ASDIRECTED PRN PRN Reason: Keep Vein Open Discontinued Medications Albuterol (Proventil Neb Soln) 2.5 mg NEB ONETIME ONE Stop: 09/07/19 21:15 Last Admin: 09/07/19 21:41 Dose: 2.5 mg Enoxaparin Sodium (Lovenox) 40 mg SUBCUT DAILY [facility] Last Admin: 09/08/19 01:24 Dose: 40 mg Enoxaparin Sodium (Lovenox) Confirm Administered Dose 40 mg .ROUTE .STK-MED ONE Stop: 09/08/19 00:49 Last Admin: 09/08/19 01:24 Dose: Not Given Sodium Chloride (Normal Saline) 1,000 mls @ 999 mls/hr IV ASDIRECTED [facility] Last Admin: 09/07/19 21:26 Dose: 999 mls/hr Levofloxacin/Dextrose 750 mg/ (Premix) 150 mls @ 100 mls/hr IV Q24H [facility] Last Admin: 09/07/19 22:24 Dose: Not Given Sodium Chloride (Normal Saline) 1,000 mls @ 125 mls/hr IV ASDIRECTED [facility] Last Admin: 09/07/19 22:32 Dose: 125 mls/hr Meropenem 1 gm/ Sodium (Chloride) 100 mls @ 200 mls/hr IV Q8H [facility] Last Admin: 09/08/19 06:00 Dose: 200 mls/hr Sodium Chloride (Normal Saline) 1,000 mls @ 125 mls/hr IV ASDIRECTED [facility] Vancomycin HCl 1 gm/ Sodium (Chloride) 250 mls @ 166.667 mls/hr IV ONETIME ONE Stop: 09/08/19 03:29 Last Admin: 09/08/19 02:31 Dose: 166.667 mls/hr Meropenem 1 gm/ Sodium (Chloride) 50 mls @ 100 mls/hr IV Q8H [facility] Last Admin: 09/10/19 05:44 Dose: 100 mls/hr Vancomycin HCl 1 gm/ Sodium (Chloride) 250 mls @ 166.667 mls/hr IV Q12H [facility] Last Admin: 09/09/19 03:27 Dose: 166.667 mls/hr Potassium Chloride 20 meq/Lidocaine HCl 2 ml/ Sodium Chloride 112 mls @ 56 mls/ hr IV Q2H [facility] Stop: 09/08/19 12:59 Last Admin: 09/08/19 13:34 Dose: 56 mls/hr Sodium Chloride (Normal Saline) 1,000 mls @ 75 mls/hr IV ASDIRECTED [facility] Last Admin: 09/09/19 01:31 Dose: 75 mls/hr Sodium Chloride (Normal Saline) 1,000 mls @ 50 mls/hr IV ASDIRECTED [facility] Last Admin: 09/09/19 19:42 Dose: 50 mls/hr Pharmacy Consult (Consult To Pharmacy) 0 each .XX ASDIRECTED [facility] Stop: 09/08/19 01:46 Potassium Chloride (Klor-Con M20) 40 meq PO ONETIME ONE Stop: 09/10/19 08:46 Last Admin: 09/10/19 08:37 Dose: 40 meq - Exam Quality Assessment: Supplemental Oxygen, DVT Prophylaxis General: Alert, Cooperative, No Acute Distress. No: Oriented Lungs: Clear to Auscultation, Normal Respiratory Effort Cardiovascular: Regular Rate, Regular Rhythm, No Murmurs GI/Abdominal Exam: Soft, Non-Tender, No Organomegaly, No Distention Extremities: Non-Tender, No Pedal Edema Sepsis Event Note - Evaluation Sepsis Screening Result: Sepsis Risk - Focused Exam Vital Signs: Vital Signs Temp Pulse Resp BP Pulse Ox 09/10/19 07:25 98.5 F 94 21 H 134/81 94 L 09/10/19 06:00 98.3 F 24 H 126/75 98 09/10/19 05:00 22 H 121/72 09/10/19 03:00 27 H 135/77 98 09/10/19 00:00 97.5 F 18 132/75 98 09/09/19 22:00 16 110/67 98 Date Exam was Performed: 09/10/19 Time Exam was Performed: 09:30 - Problem List Review Problem List Initiated/Reviewed/Updated: Yes - My Orders Last 24 Hours: My Active Orders 09/09/19 15:00 Vancomycin 1.2 gm Sodium Chloride 0.9% [Normal Saline] 250 ml IV Q12H 09/10/19 09:28 Convert IV to Saline Lock [OM.PC] Routine 09/10/19 17:00 Potassium Chloride [Klor-Con M20] 40 meq PO ONETIME ONE 09/11/19 05:11 POTASSIUM,K [CHEM] AM - Plan Plan:: ASSESSMENT AND PLAN BILATERAL PNEUMONIA-likely secondary to influenza A and MRSA pneumonia. He has no history of aspiration or difficulty with eating. Respiratory status has improved and he has been afebrile. -Blood cultures pending -IV vancomycin -Discontinue IV meropenem INFLUENZA A-not a candidate for Tamiflu because of prolonged duration of symptoms -Supportive care DEHYDRATION -IV fluids for hydration HYPOXIC RESPIRATORY FAILURE-despite supplemental oxygen, has borderline oxygenation. Respiratory rate remains elevated and I am concerned that he is developing progressive respiratory failure. -Supplemental oxygen as needed -Continue noninvasive positive pressure ventilation -Continuous pulse oximetry MAINTENANCE ISSUES -DVT prophylaxis; Lovenox 40 mg subcu daily -GI prophylaxis; not indicated -Dudley catheter; not indicated -Nutrition; regular diet -Nicotine dependence; not required CODE STATUS-FULL CODE ADMISSION STATUS-patient will be admitted to inpatient status, expect at least a 2 night hospital stay for evaluation and management of problems as outlined above. At the time of this admission I do not reasonably expected evaluation and management of this problem will require more than a 96 hour hospital stay. DISPOSITION-anticipate discharge to home after the hospital stay. PRIMARY CARE PROVIDER-Dr. Sanford
[2019-09-10] MEDS: Ibuprofen 400 MG Tab PO PRN ×2 (13:57→20:52)
[2019-09-10] MEDS: Albuterol 0.083% 2.5 MG/3 ML Neb Soln NEB PRN (16:23)
[2019-09-10] MEDS: Acetaminophen 325 MG Tab PO PRN (16:23)
[2019-09-10] MEDS: Enoxaparin 40 MG/0.4 ML Syringe SUBCUT SCH (20:53)
[2019-09-11] MEDS: Vancomycin 1.2 GM in Sodium Chloride 0.9% 250 ML IV SCH (02:55)
[2019-09-11] MEDS: Hypromellose 0.3% Ophth Soln 15 ML Bottle EYEBOTH SCH ×4 (06:07→22:06)
[2019-09-11] MEDS: Magnesium Oxide 400 MG Tab PO SCH ×2 (08:10→22:04)
--- NOTE | 2019-09-11 09:34 | PCM.PN ---
- General Info Date of Service: 09/11/19 Subjective Update: There were no acute events overnight. The patient did not use noninvasive ventilation. History is not obtainable because of his severe impairment with communication due to Down syndrome. Oxygen saturations are greater than 90 without supplemental oxygen. He appears comfortable. He does not respond to any of the questions I asked him about breathing or about pain. He does have a loose sounding cough. Appetite has been slowly improving. - Review of Systems General: Denies: Fever - Patient Data Vitals - Most Recent: Last Vital Signs Temp 37.1 C 09/11/19 08:00 Pulse 107 H 09/10/19 15:59 Resp 16 09/11/19 08:00 BP 126/73 09/11/19 08:00 Pulse Ox 96 09/11/19 08:00 Weight - Most Recent: 67.222 kg I&O - Last 24 Hours: Intake & Output 09/10/19 09/11/19 09/11/19 22:59 06:59 14:59 Intake Total 790 60 Balance 790 60 Lab Results Last 24 Hours: Laboratory Results - last 24 hr 09/11/19 Range/Units 05:25 Potassium 4.0 (3.6-5.2) mmol/L Dino Results Last 24 Hours: Microbiology 09/07/19 21:15 Aerobic Blood Culture - Preliminary Blood - Arm, Left NO GROWTH AFTER 3 DAYS Anaerobic Blood Culture - Preliminary NO GROWTH AFTER 3 DAYS 09/07/19 21:05 Aerobic Blood Culture - Preliminary Blood - Arm, Left NO GROWTH AFTER 3 DAYS Anaerobic Blood Culture - Preliminary NO GROWTH AFTER 3 DAYS 09/08/19 00:45 Gram Stain - Final Endotrachael Aspirate Respiratory Culture - Final (Mrsa) Staphylococcus Aureus Med Orders - Current: Current Medications Acetaminophen (Tylenol) 650 mg PO Q4H PRN PRN Reason: Pain (Mild 1-3)/fever Last Admin: 09/10/19 16:23 Dose: 650 mg Albuterol (Proventil Neb Soln) 2.5 mg NEB Q4H PRN PRN Reason: Shortness Of Breath/wheezing Last Admin: 09/10/19 16:23 Dose: 2.5 mg Artificial Tears (Genteal Mild To Moderate Ophth Soln) 0 ml EYEBOTH QID [facility] Last Admin: 09/11/19 06:07 Dose: 1 drop Doxycycline Hyclate (Vibramycin) 100 mg PO BID [facility] Enoxaparin Sodium (Lovenox) 40 mg SUBCUT BEDTIME [facility] Last Admin: 09/10/19 20:53 Dose: 40 mg Ibuprofen (Motrin) 400 mg PO Q6H PRN PRN Reason: Fever Last Admin: 09/10/19 20:52 Dose: 400 mg Magnesium Oxide (Magnesium Oxide) 200 mg PO BID [facility] Last Admin: 09/11/19 08:10 Dose: 200 mg Ondansetron HCl (Zofran) 4 mg IV Q4H PRN PRN Reason: Nausea/Vomiting Polyethylene Glycol (Miralax) 17 gm PO DAILY PRN PRN Reason: Constipation Sodium Chloride (Saline Flush) 10 ml FLUSH ASDIRECTED PRN PRN Reason: Keep Vein Open Discontinued Medications Albuterol (Proventil Neb Soln) 2.5 mg NEB ONETIME ONE Stop: 09/07/19 21:15 Last Admin: 09/07/19 21:41 Dose: 2.5 mg Enoxaparin Sodium (Lovenox) 40 mg SUBCUT DAILY [facility] Last Admin: 09/08/19 01:24 Dose: 40 mg Enoxaparin Sodium (Lovenox) Confirm Administered Dose 40 mg .ROUTE .STK-MED ONE Stop: 09/08/19 00:49 Last Admin: 09/08/19 01:24 Dose: Not Given Sodium Chloride (Normal Saline) 1,000 mls @ 999 mls/hr IV ASDIRECTED [facility] Last Admin: 09/07/19 21:26 Dose: 999 mls/hr Levofloxacin/Dextrose 750 mg/ (Premix) 150 mls @ 100 mls/hr IV Q24H [facility] Last Admin: 09/07/19 22:24 Dose: Not Given Sodium Chloride (Normal Saline) 1,000 mls @ 125 mls/hr IV ASDIRECTED [facility] Last Admin: 09/07/19 22:32 Dose: 125 mls/hr Meropenem 1 gm/ Sodium (Chloride) 100 mls @ 200 mls/hr IV Q8H [facility] Last Admin: 09/08/19 06:00 Dose: 200 mls/hr Sodium Chloride (Normal Saline) 1,000 mls @ 125 mls/hr IV ASDIRECTED [facility] Vancomycin HCl 1 gm/ Sodium (Chloride) 250 mls @ 166.667 mls/hr IV ONETIME ONE Stop: 09/08/19 03:29 Last Admin: 09/08/19 02:31 Dose: 166.667 mls/hr Meropenem 1 gm/ Sodium (Chloride) 50 mls @ 100 mls/hr IV Q8H [facility] Last Admin: 09/10/19 05:44 Dose: 100 mls/hr Vancomycin HCl 1 gm/ Sodium (Chloride) 250 mls @ 166.667 mls/hr IV Q12H [facility] Last Admin: 09/09/19 03:27 Dose: 166.667 mls/hr Potassium Chloride 20 meq/Lidocaine HCl 2 ml/ Sodium Chloride 112 mls @ 56 mls/ hr IV Q2H [facility] Stop: 09/08/19 12:59 Last Admin: 09/08/19 13:34 Dose: 56 mls/hr Sodium Chloride (Normal Saline) 1,000 mls @ 75 mls/hr IV ASDIRECTED [facility] Last Admin: 09/09/19 01:31 Dose: 75 mls/hr Sodium Chloride (Normal Saline) 1,000 mls @ 50 mls/hr IV ASDIRECTED [facility] Last Admin: 09/09/19 19:42 Dose: 50 mls/hr Vancomycin HCl 1.2 gm/ Sodium (Chloride) 250 mls @ 167 mls/hr IV Q12H [facility] Last Admin: 09/11/19 02:55 Dose: 167 mls/hr Pharmacy Consult (Consult To Pharmacy) 0 each .XX ASDIRECTED [facility] Stop: 09/08/19 01:46 Potassium Chloride (Klor-Con M20) 40 meq PO ONETIME ONE Stop: 09/10/19 08:46 Last Admin: 09/10/19 08:37 Dose: 40 meq Potassium Chloride (Klor-Con M20) 40 meq PO ONETIME ONE Stop: 09/10/19 17:01 Last Admin: 09/10/19 16:23 Dose: 40 meq - Exam Quality Assessment: No: Supplemental Oxygen General: Alert, Cooperative, No Acute Distress HEENT: Pupils Equal Lungs: Rhonchi (mild upper resp ). No: Normal Respiratory Effort (mild tachypnea ), Wheezing Cardiovascular: Regular Rhythm, Tachycardia GI/Abdominal Exam: Normal Bowel Sounds, Soft, No Distention Extremities: No Pedal Edema. No: Increased Warmth Skin: Warm, Dry Psy/Mental Status: Alert. No: Agitated Sepsis Event Note - Evaluation Sepsis Screening Result: No Definite Risk - Focused Exam Vital Signs: Vital Signs Temp Resp BP Pulse Ox 09/11/19 08:00 37.1 C 16 126/73 96 09/11/19 06:00 18 130/79 09/11/19 04:00 36.9 C 19 145/76 H 93 L 09/11/19 02:00 15 140/69 94 L 09/11/19 01:09 92 L 09/11/19 00:00 37.3 C 23 H 111/66 95 09/10/19 22:00 24 H 130/73 94 L Date Exam was Performed: 09/11/19 Time Exam was Performed: 10:52 - Problem List Review Problem List Initiated/Reviewed/Updated: Yes - My Orders Last 24 Hours: My Active Orders 09/11/19 09:00 Doxycycline [Vibramycin] 100 mg PO BID 09/11/19 09:32 Transfer Patient (Change bed) [ADT] Routine - Plan Plan:: ASSESSMENT AND PLAN BILATERAL PNEUMONIA-secondary to influenza A and MRSA pneumonia. Respiratory status slowly improving and he is now off supplemental oxygen. He remains very weak but appetite slowly improving. -Change antibiotics to doxycycline -Nebulizers as needed INFLUENZA A-not a candidate for Tamiflu because of prolonged duration of symptoms -Supportive care DEHYDRATION-resolved. HYPOXIC RESPIRATORY FAILURE- he is off supplemental oxygen as of this morning. -Supplemental oxygen as needed MAINTENANCE ISSUES -DVT prophylaxis; Lovenox 40 mg subcu daily -GI prophylaxis; not indicated -Nutrition; regular diet DISPOSITION-anticipate [facility] back to his [facility] after the hospital stay. Dago Rodgers MD
[2019-09-11] MEDS: Doxycycline 100 MG Cap PO SCH ×2 (10:41→22:06)
[2019-09-11] MEDS: Ibuprofen 400 MG Tab PO PRN (16:08)
[2019-09-11] MEDS: Albuterol 0.083% 2.5 MG/3 ML Neb Soln NEB PRN (16:12)
[2019-09-11] MEDS: Enoxaparin 40 MG/0.4 ML Syringe SUBCUT SCH (22:04)
[2019-09-12] MEDS: Hypromellose 0.3% Ophth Soln 15 ML Bottle EYEBOTH SCH ×2 (05:18→10:22)
[2019-09-12] MEDS: Magnesium Oxide 400 MG Tab PO SCH (08:19)
[2019-09-12] MEDS: Doxycycline 100 MG Cap PO SCH (08:19)
--- NOTE | 2019-09-12 10:56 | PCM.DCSUM1 ---
Discharge Summary - Hospital Course Brief History: 59-year-old male with history of Down syndrome who presented with several days of progressive cough, shortness of breath as well as weakness and lethargy. Work-up in the emergency room suggested a bilateral pneumonia with positive influenza A. He was admitted to the hospital for management of respiratory failure secondary to bilateral pneumonia and influenza. Diagnosis: Stroke: No - Discharge Data Discharge Date: 09/12/19 Discharge Disposition: Home, W Home Health Agency 06 Condition: Fair - Referral to Home Health Date of Face to Face Encounter: 09/12/19 Reason for Homebound Status: weakness after influenza A and bilateral pneumonia Primary Care Physician: Kirill Sanford MD Skilled Need: PT to improve strength - Patient Summary/Data Consults: Consultations 09/12/19 09:48 PT Evaluation and Treatment [CONS] Routine Please Evaluate and Treat. PT Reason for Consult: Strengthening This query below is only for informational purposes and is not editable. Admission Diagnosis/Problem: Pneumonia Hospital Course: Dima presented to the emergency room with progressive cough, shortness of breath as well as weakness and lethargy. Work-up in the emergency room revealed significant hypoxia as well as tachypnea and tachycardia. Imaging suggested a bilateral lower lung pneumonia and influenza A was positive. He had been having symptoms for nearly a week so we did not initiate Tamiflu. Because of the severity of his illness at presentation he was empirically started on antibiotics (vancomycin and meropenem) with concern that he may have a concomitant bilateral bacterial pneumonia on top of his influenza. He had significant secretions and had difficulty clearing them so he did require some NT suctioning. A sample of this suctioned mucus was sent to the lab and many gram-positive cocci were identified. He did require noninvasive positive pressure ventilation after admission to the intensive care unit. He required this for several days but did make some slow steady progress over that time and required less and less. His sputum culture did eventually returned positive for MRSA. At this point the meropenem was stopped and vancomycin was continued. He had further clinical improvement and we are able to slowly wean him off the supplemental oxygen. His appetite has been improving. His vital signs have stabilized. He has not required noninvasive ventilation or oxygen for more than 24 hours. He does remain very weak and requires the assistance of at least 2 folks and occasionally a lift. Otherwise he is clinically stable and doing well. Lung sounds have normalized and cough is steadily improving. He will need some additional antibiotic therapy with doxycycline over the next 4 days. Otherwise no medication changes were made. He will be receiving physical therapy to help improve his strength and endurance after discharge to home. - Patient Instructions Diet: Regular Diet as Tolerated Activity: As Tolerated Activity, Other: Increase activity as tolerated Showering/Bathing: May Shower Notify Provider of: Fever, Increased Pain, Nausea and/or Vomiting Other/Special Instructions: 1. You were in the hospital for management of influenza A complicated by a superimposed bilateral pneumonia caused by methicillin-resistant staph aureus. Your condition has been improving with cares provided in the hospital. You will need additional antibiotic therapy with doxycycline. Please take 100 mg twice daily for 8 more doses. Your first dose outside of the hospital will be due tonight. You are very weak because of the infections and will need to slowly increase your activity while building your strength over the next couple of weeks. 2. I have placed a referral to home health care to provide physical therapy to help ease your transition to home. 3. Continue your usual medications as previously prescribed. 4. Follow up with Dr. Sanford in 1 to 2 weeks - Discharge Plan *PRESCRIPTION DRUG MONITORING PROGRAM REVIEWED*: Not Applicable *COPY OF PRESCRIPTION DRUG MONITORING REPORT IN PATIENT YOUNG: Not Applicable Prescriptions/Med Rec: Doxycycline Hyclate 100 mg PO BID #8 capsule Home Medications: Home Meds Garlic Extract [Garlipure] 700 mg PO BID 04/16/17 [History] Glucosam/Chond/Collagen/Hyalur [Glucosamine Chondroitin] 1 each PO BID 04/16/17 [History] Ibuprofen [Advil] 200 mg PO DAILY 04/16/17 [History] Multivit-Min/Ferrous Fumarate [Multivitamin Liquid] 1 tab PO BID 04/16/17 [ History] Triamcinolone Acetonide [Kenalog 0.1% Lotion] 1 applic TOP BID 04/16/17 [History ] Polyvinyl Alcohol/Povidone/Pf [Refresh Classic Eye Drops] 1 each EYEBOTH QID 03/22 [History] Ciclopirox [Loprox 0.77% Crm] 1 dose TOP ASDIRECTED 11/11/17 [History] Nystatin [Nystatin Crm] 1 dose TOP DAILY 11/11/17 [History] Ascorbate Calcium/Bioflavonoid [Randee-C 500 MG] 500 mg PO BID 08/19/18 [History] Tumeric 1,500 mg PO DAILY 11/29/18 [History] Pumpkin Seed Oil/Saw [place] [Saw [place] 160 mg Softgel] 160 mg PO BID [History] Fluorometholone [Fluorometholone 0.1% Ophth Susp] 4 drop EARBOTH ASDIRECTED 09/21 [History] Magnesium Oxide [Uromag] 2 cap PO BID 09/05/19 [History] Triamcinolone Acetonide 1 dose TOP BID 09/05/19 [History] Doxycycline Hyclate 100 mg PO BID #8 capsule 09/12/19 [Rx] Oxygen Therapy Mode: Room Air Patient Handouts: Community-Acquired Pneumonia, Adult, Doxycycline tablets or capsules Referrals: Kirill Sanford MD [Primary Care Provider] - (1-2 weeks - f/u hospital stay for influenza and bilateral MRSA pneumonia ) - Discharge Summary/Plan Comment DC Time >30 min.: Yes (35-setting up home care ) - Patient Data Vitals - Most Recent: Last Vital Signs Temp 35.3 C L 09/12/19 10:23 Pulse 98 09/12/19 10:23 Resp 20 09/12/19 10:23 BP 154/93 H 09/12/19 10:23 Pulse Ox 90 L 09/12/19 10:23 Weight - Most Recent: 67.222 kg I&O - Last 24 hours: Intake & Output 09/11/19 09/12/19 09/12/19 22:59 06:59 14:59 Intake Total 360 Output Total 1 Balance 360 -1 THAO Results - Last 24 hrs: Microbiology 09/07/19 21:15 Aerobic Blood Culture - Preliminary Blood - Arm, Left NO GROWTH AFTER 4 DAYS Anaerobic Blood Culture - Preliminary NO GROWTH AFTER 4 DAYS 09/07/19 21:05 Aerobic Blood Culture - Preliminary Blood - Arm, Left NO GROWTH AFTER 4 DAYS Anaerobic Blood Culture - Preliminary NO GROWTH AFTER 4 DAYS Med Orders - Current: Current Medications Acetaminophen (Tylenol) 650 mg PO Q4H PRN PRN Reason: Pain (Mild 1-3)/fever Last Admin: 09/10/19 16:23 Dose: 650 mg Albuterol (Proventil Neb Soln) 2.5 mg NEB Q4H PRN PRN Reason: Shortness Of Breath/wheezing Last Admin: 09/11/19 16:12 Dose: 2.5 mg Artificial Tears (Genteal Mild To Moderate Ophth Soln) 0 ml EYEBOTH QID [facility] Last Admin: 09/12/19 10:22 Dose: 1 drop Doxycycline Hyclate (Vibramycin) 100 mg PO BID [facility] Last Admin: 09/12/19 08:19 Dose: 100 mg Enoxaparin Sodium (Lovenox) 40 mg SUBCUT BEDTIME [facility] Last Admin: 09/11/19 22:04 Dose: 40 mg Ibuprofen (Motrin) 400 mg PO Q6H PRN PRN Reason: Fever Last Admin: 09/11/19 16:08 Dose: 400 mg Magnesium Oxide (Magnesium Oxide) 200 mg PO BID [facility] Last Admin: 09/12/19 08:19 Dose: 200 mg Ondansetron HCl (Zofran) 4 mg IV Q4H PRN PRN Reason: Nausea/Vomiting Polyethylene Glycol (Miralax) 17 gm PO DAILY PRN PRN Reason: Constipation Sodium Chloride (Saline Flush) 10 ml FLUSH ASDIRECTED PRN PRN Reason: Keep Vein Open Discontinued Medications Albuterol (Proventil Neb Soln) 2.5 mg NEB ONETIME ONE Stop: 09/07/19 21:15 Last Admin: 09/07/19 21:41 Dose: 2.5 mg Enoxaparin Sodium (Lovenox) 40 mg SUBCUT DAILY [facility] Last Admin: 09/08/19 01:24 Dose: 40 mg Enoxaparin Sodium (Lovenox) Confirm Administered Dose 40 mg .ROUTE .STK-MED ONE Stop: 09/08/19 00:49 Last Admin: 09/08/19 01:24 Dose: Not Given Sodium Chloride (Normal Saline) 1,000 mls @ 999 mls/hr IV ASDIRECTED [facility] Last Admin: 09/07/19 21:26 Dose: 999 mls/hr Levofloxacin/Dextrose 750 mg/ (Premix) 150 mls @ 100 mls/hr IV Q24H [facility] Last Admin: 09/07/19 22:24 Dose: Not Given Sodium Chloride (Normal Saline) 1,000 mls @ 125 mls/hr IV ASDIRECTED [facility] Last Admin: 09/07/19 22:32 Dose: 125 mls/hr Meropenem 1 gm/ Sodium (Chloride) 100 mls @ 200 mls/hr IV Q8H [facility] Last Admin: 09/08/19 06:00 Dose: 200 mls/hr Sodium Chloride (Normal Saline) 1,000 mls @ 125 mls/hr IV ASDIRECTED [facility] Vancomycin HCl 1 gm/ Sodium (Chloride) 250 mls @ 166.667 mls/hr IV ONETIME ONE Stop: 09/08/19 03:29 Last Admin: 09/08/19 02:31 Dose: 166.667 mls/hr Meropenem 1 gm/ Sodium (Chloride) 50 mls @ 100 mls/hr IV Q8H [facility] Last Admin: 09/10/19 05:44 Dose: 100 mls/hr Vancomycin HCl 1 gm/ Sodium (Chloride) 250 mls @ 166.667 mls/hr IV Q12H [facility] Last Admin: 09/09/19 03:27 Dose: 166.667 mls/hr Potassium Chloride 20 meq/Lidocaine HCl 2 ml/ Sodium Chloride 112 mls @ 56 mls/ hr IV Q2H [facility] Stop: 09/08/19 12:59 Last Admin: 09/08/19 13:34 Dose: 56 mls/hr Sodium Chloride (Normal Saline) 1,000 mls @ 75 mls/hr IV ASDIRECTED [facility] Last Admin: 09/09/19 01:31 Dose: 75 mls/hr Sodium Chloride (Normal Saline) 1,000 mls [facility] Last Admin: 09/09/19 19:42 Dose: 50 mls/hr Vancomycin HCl 1.2 gm/ Sodium (Chloride) 250 mls @ 167 mls/hr IV Q12H [facility] Last Admin: 09/11/19 02:55 Dose: 167 mls/hr Pharmacy Consult (Consult To Pharmacy) 0 [facility] Stop: 09/08/19 01:46 Potassium Chloride (Klor-Con M20) 40 meq PO ONETIME ONE Stop: 09/10/19 08:46 Last Admin: 09/10/19 08:37 Dose: 40 meq Potassium Chloride (Klor-Con M20) 40 meq PO ONETIME ONE Stop: 09/10/19 17:01 Last Admin: 09/10/19 16:23 Dose: 40 meq - Exam Quality Assessment: Denies: Supplemental Oxygen General: Reports: Alert, Cooperative, No Acute Distress Lungs: Reports: Clear to Auscultation, Normal Respiratory Effort Cardiovascular: Reports: Regular Rate, Regular Rhythm GI/Abdominal Exam: Soft, No Distention Extremities: No Pedal Edema
== END 2019-09-12 15:00 | disposition home health service (06) | DRG 177 ==
LOC: JP.ED 19:56 → JP.ICU 23:24 → JP.MS 09-11 12:13
PROVIDERS: ADMIT Hospitalist; ATTEND Internal Medicine
PROC: 0BH17EZ Insertion of Endotracheal Airway into Trachea, Via Natural or Artificial Opening (ICD-10-PCS; principal; 2019-09-08)
PROC: 5A09357 Assistance with Respiratory Ventilation, Less than 24 Consecutive Hours, Continuous Positive Airway Pressure (ICD-10-PCS; 2019-09-08)
DX: J09.X1 Influenza due to identified novel influenza A virus with pneumonia (principal); J10.00 Influenza due to other identified influenza virus with unspecified type of pneumonia; Z87.01 Personal history of pneumonia (recurrent); J96.91 Respiratory failure, unspecified with hypoxia; J15.212 Pneumonia due to Methicillin resistant Staphylococcus aureus; G31.84 Mild cognitive impairment of uncertain or unknown etiology; R62.50 Unspecified lack of expected normal physiological development in childhood; E86.0 Dehydration; Q90.9 Down syndrome, unspecified; Z88.0 Allergy status to penicillin; Z88.1 Allergy status to other antibiotic agents; Z79.899 Other long term (current) drug therapy; Z99.81 Dependence on supplemental oxygen
CPT/HCPCS: 36415; 36600; 71045; 80053; 81001; 82803; 83605; 83880; 84145; 85025; 87040 ×2; 87804 ×2; 94640; 99285; J7030 ×2; 80048; 80202; 83735; 84132; 86140; 87070; 87077; 87186; 87205; 94660; A9270-GY; J1650; J2001; J2185; J3370; J3480; J7050

== ENCOUNTER 2020-03-01 09:33 | Emergency (ER) | payer MEDICARE, MEDICAID ==
[2020-03-01] MEDS ORDERED: EPINEPHrine 1:10,000 1 MG/10 ML Syringe IV ONE ×2 (09:37→09:52)
[2020-03-01] MEDS ORDERED: Sodium Bicarbonate 8.4% 50 MEQ/50 ML Syringe IVPUSH ONE (09:58)
[2020-03-01] MEDS ORDERED: Norepinephrine 4 MG in Dextrose 5% in Water 246 ML IV SCH ×2 (10:00)
[2020-03-01] MEDS ORDERED: Sodium Bicarbonate 150 MEQ in Sodium Chloride 0.9% 1,000 ML IV SCH (10:10)
--- NOTE | 2020-03-01 10:41 | EDM.PDOC ---
ED HPI GENERAL MEDICAL PROBLEM - General Chief Complaint: CPR in Progress Stated Complaint: MEDICAL [facility]IA [facility] Time Seen by Provider: 03/01/20 10:15 Source of Information: Reports: EMS, RN Notes Reviewed History Limitations: Reports: Respiratory Distress - History of Present Illness INITIAL COMMENTS - FREE TEXT/NARRATIVE: 60-year-old gentleman presents emergency department today in cardiac and respiratory arrest, he is a disabled member of a half-way with a history of Down syndrome story from staff is that he was eating a prune suddenly started choking. They did attempt rescue maneuvers such as the Heimlich that was unsuccessful EMS services were called at which time they arrived estimate 10 minutes was found to be in cardiac arrest with asystole no pulse CPR was init iated Brennan device provided compressions I gel was placed for airway that was difficult to ventilate and IO was placed for medications. Ambulance crew was approximately 5 minutes away from hospital air care was initiated. On arrival had asystole compressions in progress IO in place. CODE ROSA was called prior to arrival team was in place anesthesia replaced the I gel with a 7.0 ET tube unfortunately the tube would not pass, upon further inspection by anesthesia a foreign body was appreciated in the airway this was removed with Jem forceps revealing a hole prune, next a 7.[address] aced providing easy ventilation and adequate ventilation. Please see anesthesia notes for details. During this time additional IV was placed the Brennan continued with compression and another milligram of epinephrine was provided at the 2-minute kike a rhythm check was performed revealing what appeared to be atrial fibrillation a pulse was palpable next ultrasound was used placement on the chest revealed ventricles full of fluid with good cardiac activity. Compressions were stopped at this time further lab work and ABG was performed following the results of the ABG an amp of bicarb was provided 1 L of fluids also provided during this time because of the continued low blood pressure norepinephrine was initiated. His heart rate slowly converted to a sinus rhythm. Next discussed case with emergency physician Dr. Iglesias [facility] at approximately 10:00 he kindly accepted the patient in transport. He will be transported via air care to [facility] emergency department - Related Data Allergies Allergy/AdvReac Type Severity Reaction Status Date / Time cephalexin [From Keflex] Allergy Other Verified 09/07/19 21:08 Penicillins Allergy Other Verified 09/07/19 20:43 Home Meds: Home Meds Garlic Extract [Garlipure] 700 mg PO BID 04/16/17 [History] Glucosam/Chond/Collagen/Hyalur [Glucosamine Chondroitin] 1 each PO BID 04/16/17 [History] Ibuprofen [Advil] 200 mg PO DAILY 04/16/17 [History] Multivit-Min/Ferrous Fumarate [Multivitamin Liquid] 1 tab PO BID 04/16/17 [History] Triamcinolone Acetonide [Kenalog 0.1% Lotion] 1 applic TOP BID 04/16/17 [History] Polyvinyl Alcohol/Povidone/Pf [Refresh Classic Eye Drops] 1 each EYEBOTH QID 08/13/17 [History] Ciclopirox [Loprox 0.77% Crm] 1 dose TOP ASDIRECTED 11/11/17 [History] Nystatin [Nystatin Crm] 1 dose TOP DAILY 11/11/17 [History] Ascorbate Calcium/Bioflavonoid [Randee-C 500 MG] 500 mg PO BID 08/19/18 [History] Tumeric 1,500 mg PO DAILY 11/29/18 [History] Pumpkin Seed Oil/Saw [place] [Saw [place] 160 mg Softgel] 160 mg PO BID 11/30/18 [History] Fluorometholone [Fluorometholone 0.1% Ophth Susp] 4 drop EARBOTH ASDIRECTED 09/05/19 [History] Magnesium Oxide [Uromag] 2 cap PO BID 09/05/19 [History] Triamcinolone Acetonide 1 dose TOP BID 09/05/19 [History] Doxycycline Hyclate 100 mg PO BID #8 capsule 09/12/19 [Rx] Past Medical History Respiratory History: Reports: Pneumonia, Recurrent Other Musculoskeletal History: perthes hip defect. possible torn muscle in thigh. Psychiatric History: Reports: Developmental Delay Other Psychiatric History: down syndrome - Infectious Disease History Infectious Disease History: Reports: MRSA - Past Surgical History Head Surgeries/Procedures: Reports: None Social & Family History - Family History Family Medical History: Noncontributory - Caffeine Use Caffeine Use: Reports: Coffee ED ROS GENERAL - Review of Systems Review Of Systems: Unable To Obtain Reason Not Obtained: Intubation ED EXAM, CPR - Physical Exam Exam: See Below Limited By: Unresponsive General Appearance: Severe Distress Respiratory Chest: Respiratory Distress Cardiovascular: CPR In Progress 2+: Right Carotid Course - Orders/Labs/Meds Orders: Active Orders 24 hr Category Date Time Status COMPREHENSIVE METABOLIC PN,CMP [CHEM] Routine Lab 03/01/20 09:57 Received TROPONIN I [CHEM] Routine Lab 03/01/20 09:57 Received Norepinephrine [Levophed] 4 mg Med 03/01/20 10:00 Active Dextrose 5% in Water 246 ml IV TITRATE Medication Orders Norepinephrine Bitartrate 4 mg (/ Dextrose/Water) 250 mls @ 7.5 mls/hr IV TITRATE [facility]; Protocol Labs: Laboratory Tests 03/01/20 03/01/20 Range/Units 09:55 09:55 WBC 6.4 (4.5-11.0) K/uL RBC 3.42 L (4.30-5.90) M/uL Hgb 10.8 L (12.0-15.0) g/dL Hct 35.0 L (40.0-54.0) % MCV 102 H (80-98) fL MCH 32 H (27-31) pg MCHC 31 L (32-36) % Plt Count 293 (150-400) K/uL Add Manual Diff Yes Neutrophils % (Manual) 59 (36-66) % Band Neutrophils % 3 L (5-11) % Lymphocytes % (Manual) 25 (24-44) % Monocytes % (Manual) 10 H (2-6) % Eosinophils % (Manual) 1 L (2-4) % Basophils % (Manual) 2 H (0-1) % Puncture Site Lt radial ABG pH 6.948 L* (7.350-7.450) ABG pCO2 74.1 H* (35.0-42.0) mmHg ABG pO2 64.7 L (75.0-100.0) mmHg ABG HCO3 15.4 L (22.0-26.0) mmol/L ABG Total CO2 16.4 L (23.0-27.0) mmol/L ABG O2 Saturation 71.0 L (95.0-98.0) % ABG O2 Content 9.3 L (15.0-23.0) %vol ABG Base Excess -16.7 mm/L ABG Hemoglobin 9.5 L (13.5-18.0) g/dL ABG Oxyhemoglobin 69.2 % ABG Carboxyhemoglobin 1.4 (0.0-1.6) % ABG Methemoglobin 1.1 % Figueroa Test Passed O2 Delivery Device Resuscitation bag Oxygen Flow Rate L Meds: Medications Generic Name Dose Route Start Last Admin Trade Name Linnea PRN Reason Stop Dose Admin Norepinephrine Bitartrate 4 mg 250 mls @ 7.5 mls/hr 03/01/20 10:00 / Dextrose/Water IV TITRATE [facility]AM Protocol 2 MCG/MIN Departure - Departure Time of Disposition: 10:51 Disposition: DC/Tfer to Acute Hospital 02 Condition: Critical Clinical Impression: Cardiac arrest, Respiratory arrest - Discharge Information Referrals: PCP,None [Primary Care Provider] - Critical Care Note - Critical Care Note Total Time (mins): 40 - My Orders Last 24 Hours: My Active Orders 03/01/20 10:00 Norepinephrine [Levophed] 4 mg Dextrose 5% in Water 246 ml IV TITRATE - Assessment/Plan Last 24 Hours: My Active Orders 03/01/20 10:00 Norepinephrine [Levophed] 4 mg Dextrose 5% in Water 246 ml IV TITRATE Plan: Assessment Acuity = acute Site and laterality = respiratory arrest leading to cardiac arrest with return of spontaneous circulation Etiology = airway obstruction secondary to a prone Manifestations = unknown Location of injury = Home Lab values = hemoglobin low at 10.8 consistent with microchromic anemia, pH 6.95 PCO2 74.1 PCO2 64.7 and bicarb 15.4, AST elevated 231 ALT elevated to 43 consistent with elevated liver enzymes and troponin was elevated at 0.338 Plan Transfer to [place] via air care This note was dictated using [employer] voice recognition software please call with any questions on syntax or grammar.
--- NOTE | 2020-03-01 20:14 | ANES ---
DATE OF SERVICE: 03/01/2020 I was called this morning by Dr. Tavarez over in the ER for a gentleman coming in that they were actively doing chest compressions on that was believed to have been choking on some food from breakfast. I got to the ER. The patient arrived at approximately 9:35 this morning. Upon arrival, tax examining technician were doing chest compressions on the patient. According to the tax examining technician, the patient did have saturation level about 100%. Did have #3 i-gel in and did appear to be at least getting a little bit of chest rise at that time, but like I said patient was there actively doing chest compressions upon arrival. Equipment was readied. Dax forceps was also at the bedside. I then proceeded to pull the i-gel, LMA out and did a direct laryngoscopy using a MAC-3 blade. Upon direct laryngoscopy, it was noted that I could see a foreign body past his cords in his trachea. Dax forceps was used to pull it out, was unable to do that and ended up pushing the foreign object further down into the trachea. I then grabbed 8.0 endotracheal tube and intubated the patient, but upon trying to Ambu the patient, we had a significant blockage at the end of the endotracheal tube, figured it was our foreign body. Tried to push the foreign body further down into the right mainstem so we would at least cannulate the left side, but was unable to push the ET tube down any further than 24 cm at the teeth. I then proceeded to pull the endotracheal tube. Noted that there was some sort of food or foreign body lodged in the end of the endotracheal tube. I did a direct laryngoscopy again, noticed some more food or foreign body just below the vocal cords. I then proceeded again to grab the Dax forceps and was able to pull out foreign body at that time. I then proceeded to reintubate the patient using a 7.5 endotracheal tube and was secured at 25 cm at the teeth. We were able to get good chest sounds this 2nd intubation after we pulled out the couple of foreign bodies. Good chest rise, good auscultation, bilateral breath sounds were noted. Dr. Tavarez was running the code and he continued to run the code, but the airway was secured shortly after the patient's arrival. Please refer to the nurse's notes for vital signs and saturation level and medications that were given. I did not give the patient any medication during intubation. At approximately 9:45, I left the bedside after Officer said it was okay for me to go. Kameron Orozco CRNA /[id number]
== END 2020-03-01 10:15 ==
LOC: JP.ED 09:33
DX: I46.9 Cardiac arrest, cause unspecified (principal); Z88.1 Allergy status to other antibiotic agents; Z88.0 Allergy status to penicillin; Z79.899 Other long term (current) drug therapy
CPT/HCPCS: 31500; 36415; 36600; 80053; 82803; 84484; 85025; 92950; 96374; 99285-25; 99291